=== PATIENT | female | born 1965 | race Caucasian/White ===

== ENCOUNTER 2017-01-05 15:04 | Emergency (ER) | payer BC, OTHER ==
[2017-01-05 15:13] VITALS: BP 123/68
[2017-01-05] MEDS ORDERED: Sodium Chloride 0.9% 10 ML Syringe FLUSH PRN (15:13)
[2017-01-05 16:09] LABS: ACETAMINOPHEN 0 ug/mL (10-30)
--- NOTE | 2017-01-05 16:09 | EDM.PDOC ---
ED HPI GENERAL MEDICAL PROBLEM - General Chief Complaint: Behavioral/Psych Stated Complaint: [facility] Time Seen by Provider: 01/05/17 15:13 Source of Information: Reports: Patient, EMS, Family History Limitations: Reports: No Limitations - History of Present Illness INITIAL COMMENTS - FREE TEXT/NARRATIVE: The patient presents by ambulance after being found by her adult daughter. The patient got into an argument with someone this morning. She was anxious and she took valium to help. She took 40mgs total. She says that had nothing to do with her falling. She uses a cane because of chronic pain from surgeries to her right knee. She was walking by the water dish for her dog and the cane slipped in the water dish and she fell. She did not hit her head and she did not hurt her neck. She denies, headache, chest pain, shortness of breath, abdominal pain, nausea, vomiting, hip or wrist pain. She does have right knee pain. She has no numbness or weakness. Onset: Gradual Duration: Minutes: Location: Reports: Upper Extremity, Right (Knee) Quality: Reports: Sharp Severity: Moderate Improves with: Reports: Immobilization Worsens with: Reports: Movement Associated Symptoms: Reports: No Other Symptoms Right Knee Pain Score (Numeric/FACES): 7 - Related Data Allergies Allergy/AdvReac Type Severity Reaction Status Date / Time ibuprofen Allergy Cannot Verified 01/05/17 15:34 Remember Home Meds: Home Meds Cyanocobalamin (Vitamin B-12) [Vitamin B-12] 1,000 mcg PO DAILY 03/06/16 [ History] DULoxetine HCl [Cymbalta] 60 mg PO BID 03/06/16 [History] Dextroamphetamine/Amphetamine [Adderall] 60 mg PO DAILY 03/06/16 [History] Diazepam [Diazepam] 10 mg PO TID PRN 03/06/16 [History] Estrogen,Con/M-Progest Acet [Prempro 0.3 MG-1.5 MG] 1 tab PO DAILY 03/06/16 [ History] Gabapentin [Neurontin] 200 mg PO TID 03/06/16 [History] Iron 18 mg PO DAILY 03/06/16 [History] Levothyroxine [Synthroid] 100 mcg PO DAILY 03/06/16 [History] OXcarbazepine [Trileptal] 900 mg PO BEDTIME 03/06/16 [History] Oxybutynin Chloride [Ditropan Xl] 10 mg PO BID 03/06/16 [History] Zolpidem Tartrate [Ambien] 12.5 mg PO BEDTIME PRN 03/06/16 [History] oxyCODONE HCl/Acetaminophen [Percocet 10-325 mg Tablet] 1 each PO 6XDAY PRN [History] traZODone HCl [Trazodone HCl] 2 - 3 tab PO BEDTIME PRN 03/06/16 [History] Caffeine [Stay Awake] 200 mg PO ASDIRECTED 01/05/17 [History] Cephalexin 250 mg PO Q48H 01/05/17 [History] Cholecalciferol (Vitamin D3) [Vitamin D3] 1 tab PO DAILY 01/05/17 [History] Clarithromycin 500 mg PO BID 01/05/17 [History] Mirabegron [Myrbetriq] 50 mg PO BEDTIME 01/05/17 [History] Morphine. 1 tab PO ASDIRECTED 01/05/17 [History] Rifampin 300 mg PO BID 01/05/17 [History] Sulfamethoxazole/Trimethoprim [Bactrim Ds Tablet] 1 tab PO BID 01/05/17 [History ] Past Medical History HEENT History: Reports: Other (See Below) Other HEENT History: wears dentures Genitourinary History: Reports: UTI, Recurrent Psychiatric History: Reports: Anxiety, Bipolar, Depression Endocrine/Metabolic History: Reports: Hypothyroidism Hematologic History: Reports: Anemia, B12 Deficiency Dermatologic History: Reports: Other (See Below) Other Dermatologic History: excess skin removal surgery - Past Surgical History GI Surgical History: Reports: Bariatric Procedure Musculoskeletal Surgical History: Reports: Knee Replacement Social & Family History - Family History Family Medical History: Noncontributory - Tobacco Use Smoking Status *Q: Never Smoker Second Hand Smoke Exposure: No - Caffeine Use Caffeine Use: Reports: Coffee, Soda - Recreational Drug Use Recreational Drug Use: No ED ROS GENERAL - Review of Systems Review Of Systems: See Below Constitutional: Reports: No Symptoms HEENT: Reports: No Symptoms Respiratory: Reports: No Symptoms Cardiovascular: Reports: No Symptoms Endocrine: Reports: No Symptoms GI/Abdominal: Reports: No Symptoms : Reports: No Symptoms Musculoskeletal: Reports: Other (Right knee pain) - Physical Exam Exam: See Below Exam Limited By: No Limitations General Appearance: Alert, No Apparent Distress Ears: Normal External Exam Nose: Normal Inspection Head Exam: Atraumatic, Normocephalic Neck: Normal Inspection Respiratory/Chest: No Respiratory Distress, Lungs Clear, Normal Breath Sounds Cardiovascular: Regular Rate, Rhythm, No Edema, No Murmur GI/Abdominal: Soft, Non-Tender, No Organomegaly, No Mass Neuro Exam (Abbreviated): Alert, Oriented, No Motor/Sensory Deficits Back Exam: Normal Inspection Extremities: Other (Right knee has old scars with edema and pain upon palpation. ) Course - Vital Signs Last Recorded V/S: Last Vital Signs Temp 97.8 F 01/05/17 15:09 Pulse 75 01/05/17 15:09 Resp 24 H 01/05/17 15:09 BP 123/68 01/05/17 15:09 Pulse Ox 100 01/05/17 15:09 - Orders/Labs/Meds Orders: Active Orders 24 hr Category Date Time Status Cardiac Monitoring [RC] . DIRECTED Care 01/05/17 15:13 Active EKG Documentation Completion [RC] STAT Care 01/05/17 15:13 Active Peripheral IV Care [RC] . DIRECTED Care 01/05/17 15:14 Active Knee Min 4V Rt [CR] Stat Exams 01/05/17 16:03 Taken Sodium Chloride 0.9% [Saline Flush] Med 01/05/17 15:13 Active 10 ml FLUSH ASDIRECTED PRN Peripheral IV Insertion Adult [OM.PC] Stat Oth 01/05/17 15:13 Ordered Medication Orders Sodium Chloride (Saline Flush) 10 ml FLUSH ASDIRECTED PRN PRN Reason: Keep Vein Open Last Admin: 01/05/17 15:35 Dose: 10 ml Labs: Laboratory Tests 01/05/17 01/05/17 01/05/17 Range/Units 15:30 15:30 15:30 WBC 7.26 (3.98-10.04) K/mm3 RBC 4.16 (3.98-5.22) M/mm3 Hgb 12.9 (11.2-15.7) gm/L Hct 39.0 (34.1-44.9) % MCV 93.8 (79.4-94.8) fl MCH 31.0 (25.6-32.2) pg MCHC 33.1 (32.2-35.5) g/dl RDW Std Deviation 42.4 (36.4-46.3) fL Plt Count 248 (182-369) K/mm3 MPV 10.2 (9.4-12.3) fl Neut % (Auto) 64.2 (34.0-71.1) % Lymph % (Auto) 25.6 (19.3-51.7) % [place] % (Auto) 6.7 (4.7-12.5) % Eos % (Auto) 2.8 (0.7-5.8) Baso % (Auto) 0.6 (0.1-1.2) % Neut # (Auto) 4.66 (1.56-6.13) K/mm3 Lymph # (Auto) 1.86 (1.18-3.74) K/mm3 [place] # (Auto) 0.49 H (0.24-0.36) K/mm3 Eos # (Auto) 0.20 (0.04-0.36) K/mm3 Baso # (Auto) 0.04 (0.01-0.08) K/mm3 Sodium 142 (136-145) mEq/L Potassium 4.2 (3.5-5.1) mEq/L Chloride 105 (98-107) mEq/L Carbon Dioxide 29 (21-32) mEq/L Anion Gap 12.2 (5-15) BUN 10 (7-18) mg/dL Creatinine 0.8 (0.55-1.02) mg/dL Est Cr Clr Drug Dosing 87.92 mL/min Estimated GFR (MDRD) > 60 (>60) mL/min BUN/Creatinine Ratio 12.5 L (14-18) Glucose 87 (74-106) mg/dL Calcium 9.1 (8.5-10.1) mg/dL Total Bilirubin 0.4 (0.2-1.0) mg/dL AST 12 L (15-37) U/L ALT 14 (14-59) U/L Alkaline Phosphatase 70 (46-116) U/L Troponin I < 0.017 (0.00-0.056) ng/mL Total Protein 6.4 (6.4-8.2) g/dl Albumin 3.1 L (3.4-5.0) g/dl Globulin 3.3 gm/dL Albumin/Globulin Ratio 0.9 L (1-2) Salicylates 1.5 L (2.8-20) mg/dL Acetaminophen 0 L (10-30) ug/mL Ethyl Alcohol 0.00 (0.00) gm% Meds: Medications Generic Name Dose Route Start Last Admin Trade Name Freq PRN Reason Stop Dose Admin Sodium Chloride 10 ml 01/05/17 15:13 01/05/17 15:35 Saline Flush FLUSH 10 ml ASDIRECTED PRN Administration Keep Vein Open - Re-Assessments/Exams Free Text/Narrative Re-Assessment/Exam: 01/05/17 16:12 I ordered an IV saline lock, EKG, labs and UDS. Her EKG shwos a NSR with no acute changes. 01/05/17 16:38 Her EKG shows a NSR with no acute changes. Her CBC and CMP look good. Her troponin was negative. Her ETOH was negative. Her salicylate and acetaminophen were negative. She could not give us a urine sample at this time. Her son was here and he was not suspecting she tried to hurt herself. I feels she is safe to go home. Her knee x-ray shows no fracture. She does have a prosthesis. Departure - Departure Time of Disposition: 16:45 Disposition: Home, Self-Care 01 Condition: Good Clinical Impression: Fall Qualifiers: Encounter type: initial encounter Qualified Code(s): W19.XXXA - Unspecified fall, initial encounter Contusion of right knee Qualifiers: Encounter type: initial encounter Qualified Code(s): S80.01XA - Contusion of right knee, initial encounter Accidental overdose Qualifiers: Encounter type: initial encounter Qualified Code(s): T50.901A - Poisoning by unspecified drugs, medicaments and biological substances, accidental ( unintentional), initial encounter - Discharge Information Referrals: Suha Fernandez MD [Primary Care Provider] - Forms: ED Department Discharge Additional Instructions: Take your medication as prescribed. Ice your knee for 15 minutes 3 times per day for 2 days. Please return if you are worse. - My Orders Last 24 Hours: My Active Orders 01/05/17 15:13 Cardiac Monitoring [RC] . DIRECTED EKG Documentation Completion [RC] STAT Sodium Chloride 0.9% [Saline Flush] 10 ml FLUSH ASDIRECTED PRN Peripheral IV Insertion Adult [OM.PC] Stat 01/05/17 15:14 Peripheral IV Care [RC] . DIRECTED 01/05/17 16:03 Knee Min 4V Rt [CR] Stat - Assessment/Plan Last 24 Hours: My Active Orders 01/05/17 15:13 Cardiac Monitoring [RC] . DIRECTED EKG Documentation Completion [RC] STAT Sodium Chloride 0.9% [Saline Flush] 10 ml FLUSH ASDIRECTED PRN Peripheral IV Insertion Adult [OM.PC] Stat 01/05/17 15:14 Peripheral IV Care [RC] . DIRECTED 01/05/17 16:03 Knee Min 4V Rt [CR] Stat
--- NOTE | 2017-01-05 18:20 | CR ---
Right knee: Four views of the right knee were obtained. Comparison: No previous study. Knee prosthesis is seen. Components are aligned. Underlying bony structures are intact. Impression: 1. Right knee prosthesis. Right knee exam is otherwise unremarkable. Diagnostic code #2
== END 2017-01-05 17:10 | disposition home or self-care (01) ==
LOC: JD.ED 15:04
DX: T42.4X1A Poisoning by benzodiazepines, accidental (unintentional), initial encounter (principal); S80.01XA Contusion of right knee, initial encounter; E03.9 Hypothyroidism, unspecified; W01.0XXA Fall on same level from slipping, tripping and stumbling without subsequent striking against object, initial encounter; Z79.899 Other long term (current) drug therapy; Z88.6 Allergy status to analgesic agent; Z96.659 Presence of unspecified artificial knee joint
CPT/HCPCS: 36415; 73564; 80053; 84484; 85025; 93005; 99285; G0480; J7050; 93010; 99284

== ENCOUNTER 2017-04-21 13:01 | Emergency (ER) | payer BC, OTHER ==
[2017-04-21 13:17] VITALS: BP 106/84
[2017-04-21] MEDS ORDERED: Sodium Chloride 0.9% 1,000 ML IV ONE (13:48)
--- NOTE | 2017-04-21 13:48 | EDM.PDOC ---
ED HPI GENERAL MEDICAL PROBLEM - General Chief Complaint: Behavioral/Psych Stated Complaint: [facility] Time Seen by Provider: 04/21/17 13:33 Source of Information: Reports: Patient History Limitations: Reports: No Limitations - History of Present Illness INITIAL COMMENTS - FREE TEXT/NARRATIVE: 51-year-old female presents via [facility] for unresponsiveness. Reportedly her found out she was selling her narcotics for marijuana today. He went to the police. While he was at the police their 19-year-old daughter called 911 stating that her mother had taken an overdose of pills. This was not witnessed by the daughter. Unknown how many pills she took or what medication she took. Upon arrival to the ER she is responding to painful stimuli. Does not confirm or deny OD. Noted that she is on multiple controlled substances for pain and depression/ anxiety. - Related Data Allergies Allergy/AdvReac Type Severity Reaction Status Date / Time ibuprofen Allergy Cannot Verified 04/22/17 17:47 Remember Home Meds: Home Meds Oxybutynin [Oxybutynin ER] 10 mg PO BID 04/21/17 [History] oxyCODONE HCl/Acetaminophen [Percocet 10-325 mg Tablet] 1 tab PO Q4H PRN MDD 6 tablets/24hours 04/21/17 [History] Amphetamine/Dextroamphetamine [Adderall XR] 2 cap PO DAILY 04/22/17 [History] Cholecalciferol (Vitamin D3) [Vitamin D3] 1,000 units PO DAILY 04/22/17 [History ] Clarithromycin 500 mg PO BID 04/22/17 [History] Cyanocobalamin (Vitamin B12) [Vitamin B12] 1,000 mcg PO DAILY 04/22/17 [History] DULoxetine [Cymbalta] 60 mg PO BID 04/22/17 [History] DULoxetine [Cymbalta] 60 mg PO DAILY 04/22/17 [History] Diazepam [Valium] 10 mg PO TID PRN 04/22/17 [History] Ferrous Gluconate 27 gm PO DAILY 04/22/17 [History] Gabapentin [Neurontin] 300 mg PO TID 04/22/17 [History] Levothyroxine [Sythroid] 100 mcg PO DAILY 04/22/17 [History] Mirabegron [Myrbetriq] 50 mg PO BEDTIME 04/22/17 [History] Rifampin 300 mg PO BID 04/22/17 [History] Vitamin E 400 unit PO DAILY 04/22/17 [History] Zolpidem [Ambien CR] 12.5 mg PO BEDTIME 04/22/17 [History] diphenhydrAMINE [Benadryl] 50 mg PO BEDTIME PRN 04/22/17 [History] traZODone 200 - 300 mg PO BEDTIME 04/22/17 [History] Past Medical History HEENT History: Reports: Other (See Below) Other HEENT History: wears dentures Genitourinary History: Reports: UTI, Recurrent Psychiatric History: Reports: Anxiety, Bipolar, Depression Endocrine/Metabolic History: Reports: Hypothyroidism Hematologic History: Reports: Anemia, B12 Deficiency Dermatologic History: Reports: Other (See Below) Other Dermatologic History: excess skin removal surgery - Past Surgical History GI Surgical History: Reports: Bariatric Procedure Musculoskeletal Surgical History: Reports: Knee Replacement Social & Family History - Family History Family Medical History: Noncontributory - Tobacco Use Smoking Status *Q: Never Smoker Second Hand Smoke Exposure: No - Caffeine Use Caffeine Use: Reports: Coffee, Soda - Recreational Drug Use Recreational Drug Use: No ED ROS GENERAL - Review of Systems Review Of Systems: Unable To Obtain - Physical Exam Exam: See Below Exam Limited By: No Limitations General Appearance: WD/WN, No Apparent Distress, Lethargic Eye Exam: Bilateral Eye: Normal Inspection Nose: Normal Inspection Throat/Mouth: Normal Inspection Respiratory/Chest: No Respiratory Distress, Lungs Clear, Normal Breath Sounds Cardiovascular: Normal Peripheral Pulses, Regular Rate, Rhythm, No Murmur GI/Abdominal: Soft, Non-Tender Neuro Exam (Abbreviated): Slow to Respond Skin Exam: Warm, Dry, Normal Color EKG INTERPRETATION EKG Date: 04/21/17 Time: 14:40 Rhythm: NSR Rate (Beats/Min): 71 [place]: Normal P-Wave: Present QRS: Normal ST-T: Normal QT: Normal EKG Interpretation Comments: NSR at 71 bpm. Borderline criteria for LVH. QT mildly prolonged. Reviewed by myself and Dr. Davison. Course - Vital Signs Last Recorded V/S: Last Vital Signs Temp 37.0 C 04/21/17 13:10 Pulse 73 04/21/17 13:10 Resp 13 04/21/17 13:10 BP 106/84 04/21/17 13:10 Pulse Ox 92 L 04/21/17 13:10 - Orders/Labs/Meds Labs: Laboratory Tests 04/21/17 04/21/17 04/21/17 Range/Units 13:27 13:27 13:27 WBC 5.19 (3.98-10.04) K/mm3 RBC 5.04 (3.98-5.22) M/mm3 Hgb 15.0 (11.2-15.7) gm/L Hct 46.4 H (34.1-44.9) % MCV 92.1 (79.4-94.8) fl MCH 29.8 (25.6-32.2) pg MCHC 32.3 (32.2-35.5) g/dl RDW Std Deviation 50.6 H (36.4-46.3) fL Plt Count 199 (182-369) K/mm3 MPV 10.6 (9.4-12.3) fl Neutrophils % (Manual) 44 (40-60) % Band Neutrophils % 4 (0-10) % Lymphocytes % (Manual) 47 H (20-40) % Atypical Lymphs % 0 % Monocytes % (Manual) 4 (2-10) % Eosinophils % (Manual) 1 (0.7-5.8) % Basophils % (Manual) 0 L (0.1-1.2) Platelet Estimate Adequate RBC Morph Comment Normal Sodium 139 (136-145) mEq/L Potassium 4.1 (3.5-5.1) mEq/L Chloride 102 (98-107) mEq/L Carbon Dioxide 27 (21-32) mEq/L Anion Gap 14.1 (5-15) BUN 17 (7-18) mg/dL Creatinine 1.1 H (0.55-1.02) mg/dL Est Cr Clr Drug Dosing TNP Estimated GFR (MDRD) 53 (>60) mL/min BUN/Creatinine Ratio 15.5 (14-18) Glucose 87 (74-106) mg/dL Calcium 9.3 (8.5-10.1) mg/dL Total Bilirubin 0.2 (0.2-1.0) mg/dL AST 18 (15-37) U/L ALT 23 (14-59) U/L Alkaline Phosphatase 79 (46-116) U/L Total Protein 7.2 (6.4-8.2) g/dl Albumin 3.5 (3.4-5.0) g/dl Globulin 3.7 gm/dL Albumin/Globulin Ratio 1.0 (1-2) TSH 3rd Generation 8.072 H (0.358-3.74) uIU/mL Urine Color (Yellow) Urine Appearance (Clear) Urine pH (5.0-8.0) Ur Specific Isabel (1.005-1.030) Urine Protein (Negative) Urine Glucose (UA) (Negative) Urine Ketones (Negative) Urine Occult Blood (Negative) Urine Nitrite (Negative) Urine Bilirubin (Negative) Urine Urobilinogen (0.2-1.0) Ur Leukocyte Esterase (Negative) Urine RBC (0-5) /hpf Urine WBC (0-5) /hpf Ur Epithelial Cells (0-5) /hpf Urine Bacteria (FEW) /hpf Urine Mucus (FEW) /hpf Salicylates 2.6 L (2.8-20) mg/dL Urine Opiates Screen (NEGATIVE) Ur Buprenorphine Scrn (NEGATIVE) Ur Oxycodone Screen (NEGATIVE) Urine Methadone Screen (NEGATIVE) Ur Propoxyphene Screen (NEGATIVE) Acetaminophen 0 L (10-30) ug/mL Ur Barbiturates Screen (NEGATIVE) Ur Tricyclics Screen (NEGATIVE) Ur Phencyclidine Scrn (NEGATIVE) Ur Amphetamine Screen (NEGATIVE) U Methamphetamines Scrn (NEGATIVE) U Benzodiazepines Scrn (NEGATIVE) U Cocaine Metab Screen (NEGATIVE) U Marijuana (THC) Screen (NEGATIVE) Ethyl Alcohol 0.00 (0.00) gm% 04/21/17 04/21/17 Range/Units 13:49 13:49 WBC (3.98-10.04) K/mm3 RBC (3.98-5.22) M/mm3 Hgb (11.2-15.7) gm/L Hct (34.1-44.9) % MCV (79.4-94.8) fl MCH (25.6-32.2) pg MCHC (32.2-35.5) g/dl RDW Std Deviation (36.4-46.3) fL Plt Count (182-369) K/mm3 MPV (9.4-12.3) fl Neutrophils % (Manual) (40-60) % Band Neutrophils % (0-10) % Lymphocytes % (Manual) (20-40) % Atypical Lymphs % % Monocytes % (Manual) (2-10) % Eosinophils % (Manual) (0.7-5.8) % Basophils % (Manual) (0.1-1.2) Platelet Estimate RBC Morph Comment Sodium (136-145) mEq/L Potassium (3.5-5.1) mEq/L Chloride (98-107) mEq/L Carbon Dioxide (21-32) mEq/L Anion Gap (5-15) BUN (7-18) mg/dL Creatinine (0.55-1.02) mg/dL Est Cr Clr Drug Dosing Estimated GFR (MDRD) (>60) mL/min BUN/Creatinine Ratio (14-18) Glucose (74-106) mg/dL Calcium (8.5-10.1) mg/dL Total Bilirubin (0.2-1.0) mg/dL AST (15-37) U/L ALT (14-59) U/L Alkaline Phosphatase (46-116) U/L Total Protein (6.4-8.2) g/dl Albumin (3.4-5.0) g/dl Globulin gm/dL Albumin/Globulin Ratio (1-2) TSH 3rd Generation (0.358-3.74) uIU/mL Urine Color Yellow (Yellow) Urine Appearance Slt cloudy H (Clear) Urine pH 6.5 (5.0-8.0) Ur Specific [place] 1.025 (1.005-1.030) Urine Protein Negative (Negative) Urine Glucose (UA) Negative (Negative) Urine Ketones Negative (Negative) Urine Occult Blood Negative (Negative) Urine Nitrite Negative (Negative) Urine Bilirubin Negative (Negative) Urine Urobilinogen 1.0 (0.2-1.0) Ur Leukocyte Esterase Negative (Negative) Urine RBC 0-5 (0-5) /hpf Urine WBC 0-5 (0-5) /hpf Ur Epithelial Cells 0-5 (0-5) /hpf Urine Bacteria Moderate H (FEW) /hpf Urine Mucus Few (FEW) /hpf Salicylates (2.8-20) mg/dL Urine Opiates Screen Presumptive positive H (NEGATIVE) Ur Buprenorphine Scrn Negative (NEGATIVE) Ur Oxycodone Screen Presumptive positive H (NEGATIVE) Urine Methadone Screen Negative (NEGATIVE) Ur Propoxyphene Screen Negative (NEGATIVE) Acetaminophen (10-30) ug/mL Ur Barbiturates Screen Negative (NEGATIVE) Ur Tricyclics Screen Negative (NEGATIVE) Ur Phencyclidine Scrn Negative (NEGATIVE) Ur Amphetamine Screen Presumptive positive H (NEGATIVE) U Methamphetamines Scrn Negative (NEGATIVE) U Benzodiazepines Scrn Presumptive positive H (NEGATIVE) U Cocaine Metab Screen Negative (NEGATIVE) U Marijuana (THC) Screen Negative (NEGATIVE) Ethyl Alcohol (0.00) gm% Meds: Medications Discontinued Medications Generic Name Dose Route Start Last Admin Trade Name Freq PRN Reason Stop Dose Admin Sodium Chloride 1,000 mls @ 999 mls/hr 04/21/17 13:48 04/21/17 13:58 Normal Saline IV 04/21/17 14:48 999 mls/hr ONETIME ONE Administration Sodium Chloride 10 ml 04/21/17 13:50 04/21/17 13:59 Saline Flush FLUSH 10 ml ASDIRECTED PRN Administration Keep Vein Open - Radiology Interpretation Free Text/Narrative:: chest xray shows no acute intrathoracic process. - Re-Assessments/Exams Free Text/Narrative Re-Assessment/Exam: 04/21/17 18:32 The patient is now alert and awake. She is wanting to go. Have attempted to talk to her but she is rather upset about her and her splitting up. She would like to leave. Patient reports suicidal thoughts but states that she does not have a plan. No homicidal thoughts. She denies any medical concerns. States she is seeing a psychiatrist. Complains of chronic pain. Reports she uses marijuana for chronic pain. Patient has no plan where to go to stay tonight. She refusing to talk to social a work. She refuses to go to any type of senior care. She tells me that she thinks about suicide but does not have any plan. She is adamant that she did not attempt overdose when asked, she states this on multiple occasions. She is on a significant amount of controlled substances which can cause lethargy. Case discussed with Dr. Davison. Given she denies overdosing and is not actively suicidal at this time, cannot commit. Will send home with family. Will discharge her at this time. Discharge instructions as documented. Departure - Departure Time of Disposition: 18:32 Disposition: Home, Self-Care 01 Condition: Fair Clinical Impression: Situational depression - Discharge Information Referrals: PCP,None [Primary Care Provider] - Suha Fernandez MD [Physician] - Adrianna Mcneill NP [Ordering Only Provider] - Forms: ED Department Discharge Additional Instructions: Recommend establishing with a counselor. May call [facility] that [phone] or the emergency crisis line at [phone] establish with a counselor there. Follow-up with your primary care provider this week for recheck. Please return to the ER for symptoms change or worsen.
[2017-04-21] MEDS ORDERED: Sodium Chloride 0.9% 10 ML Syringe FLUSH PRN (13:50)
[2017-04-21 14:26] LABS: ACETAMINOPHEN 0 ug/mL (10-30)
--- NOTE | 2017-04-21 14:44 | CR ---
Chest: Portable view of the chest was obtained. Comparison: Prior chest x-ray of 03/06/16. Heart size and mediastinum are normal. Lungs are clear. Bony structures show mild scoliosis within the spine. Slight degenerative spurring is noted within the spine. Impression: 1. Nothing acute is identified on portable chest x-ray. Diagnostic code #2
== END 2017-04-21 18:52 | disposition home or self-care (01) ==
LOC: JD.ED 13:01
DX: F43.21 Adjustment disorder with depressed mood (principal); Z79.899 Other long term (current) drug therapy; Z88.6 Allergy status to analgesic agent
CPT/HCPCS: 36415; 71045; 80053; 80306; 81001; 84443; 85025; 93005; 96360; 96361; 99285; G0480; J7040; J7050; P9612

== ENCOUNTER 2017-04-22 17:36 | Emergency (ER) | payer BC, OTHER ==
[2017-04-22] MEDS ORDERED: Haloperidol Lactate 5 MG/ML SDV IM ONE (17:51)
[2017-04-22] MEDS ORDERED: LORazepam 2 MG/ML SDV IM ONE (17:51)
--- NOTE | 2017-04-22 22:54 | EDM.PDOCBH ---
ED HPI GENERAL MEDICAL PROBLEM - General Chief Complaint: Behavioral/Psych Stated Complaint: PSYCH EVAL Time Seen by Provider: 04/22/17 18:50 Source of Information: Reports: Patient, Family (son) History Limitations: Reports: No Limitations - History of Present Illness INITIAL COMMENTS - FREE TEXT/NARRATIVE: 51 year old female is brought in by her son for a psychiatric evaluation. She was seen by myself and in the ER yesterday for a possible overdose. She was lethargic upon arrival but after sleeping in the ER she was alert and awake. She denies overdosing. She stated she was tired and upset by her current home situation. She was discharge home. Patient presents with her today as he is concerned about comments she has been making today. Son states she has been saying things like :I just want to ." "You won't miss me". " I just want to disappear". The patient was very upset upon arrival in the ER. She was given 2mgIM ativan and 5mg IM haldol for her anxiety and restlessness. This significantly calmed her. Patient admits to saying these things to her son earlier. Denies any homicidal ideation. Denies any medical concerns. No cough, fevers, nausea or vomiting. Patient is currently in a pain contract. Review of her record on [employer] Aware shows Rx for gabapentin, ambian, percocet, morphine, valvium and aderall within the last 1-2 months. - Related Data Allergies Allergy/AdvReac Type Severity Reaction Status Date / Time ibuprofen Allergy Cannot Verified 04/22/17 17:47 Remember Home Meds: Home Meds Oxybutynin [Oxybutynin ER] 10 mg PO BID 04/21/17 [History] oxyCODONE HCl/Acetaminophen [Percocet 10-325 mg Tablet] 1 tab PO Q4H PRN MDD 6 tablets/24hours 04/21/17 [History] Amphetamine/Dextroamphetamine [Adderall XR] 2 cap PO DAILY 04/22/17 [History] Cholecalciferol (Vitamin D3) [Vitamin D3] 1,000 units PO DAILY 04/22/17 [History ] Clarithromycin 500 mg PO BID 04/22/17 [History] Cyanocobalamin (Vitamin B12) [Vitamin B12] 1,000 mcg PO DAILY 04/22/17 [History] DULoxetine [Cymbalta] 60 mg PO BID 04/22/17 [History] DULoxetine [Cymbalta] 60 mg PO DAILY 04/22/17 [History] Diazepam [Valium] 10 mg PO TID PRN 04/22/17 [History] Ferrous Gluconate 27 gm PO DAILY 04/22/17 [History] Gabapentin [Neurontin] 300 mg PO TID 04/22/17 [History] Levothyroxine [Sythroid] 100 mcg PO DAILY 04/22/17 [History] Mirabegron [Myrbetriq] 50 mg PO BEDTIME 04/22/17 [History] Rifampin 300 mg PO BID 04/22/17 [History] Vitamin E 400 unit PO DAILY 04/22/17 [History] Zolpidem [Ambien CR] 12.5 mg PO BEDTIME 04/22/17 [History] diphenhydrAMINE [Benadryl] 50 mg PO BEDTIME PRN 04/22/17 [History] traZODone 200 - 300 mg PO BEDTIME 04/22/17 [History] Past Medical History HEENT History: Reports: Other (See Below) Other HEENT History: wears dentures Genitourinary History: Reports: UTI, Recurrent Psychiatric History: Reports: Anxiety, Bipolar, Depression Endocrine/Metabolic History: Reports: Hypothyroidism Hematologic History: Reports: Anemia, B12 Deficiency Dermatologic History: Reports: Other (See Below) Other Dermatologic History: excess skin removal surgery - Past Surgical History GI Surgical History: Reports: Bariatric Procedure Musculoskeletal Surgical History: Reports: Knee Replacement Social & Family History - Family History Family Medical History: Noncontributory - Tobacco Use Smoking Status *Q: Never Smoker Second Hand Smoke Exposure: No - Caffeine Use Caffeine Use: Reports: Coffee, Soda - Recreational Drug Use Recreational Drug Use: No ED ROS GENERAL - Review of Systems Review Of Systems: See Below Constitutional: Denies: Fever Respiratory: Denies: Cough GI/Abdominal: Denies: Nausea, Vomiting Psychiatric: Reports: Depression, Suicidal Ideation. Denies: Homicidal Ideation ED EXAM, BEHAVIORAL HEALTH - Physical Exam Exam: See Below Exam Limited By: No Limitations General Appearance: Alert, Anxious, Moderate Distress, Thin Eye Exam: Bilateral Eye: Normal Inspection Throat/Mouth: Normal Inspection Respiratory/Chest: No Respiratory Distress, Lungs Clear, Normal Breath Sounds Cardiovascular: Normal Peripheral Pulses, Regular Rate, Rhythm, No Murmur 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: Alert Psychiatric: Alert, Depressed Mood, Tearful, Poor Eye Contact, Uncooperative, Suicidal Thoughts, Other (elusive). No: Homicidal Thoughts, Suicidal Plan Skin Exam: Warm, Dry, Normal color COURSE, BEHAVIORAL HEALTH COMP - Course Vital Signs: Last Vital Signs Temp 36.1 C 04/22/17 17:47 Pulse 91 04/22/17 17:47 Resp BP 140/106 H 04/22/17 17:47 Pulse Ox 100 04/22/17 17:47 Orders, Labs, Meds: Laboratory Tests 04/22/17 04/22/17 04/22/17 Range/Units 18:23 18:23 18:23 WBC 6.20 (3.98-10.04) K/mm3 RBC 5.09 (3.98-5.22) M/mm3 Hgb 15.1 (11.2-15.7) gm/L Hct 45.4 H (34.1-44.9) % MCV 89.2 (79.4-94.8) fl MCH 29.7 (25.6-32.2) pg MCHC 33.3 (32.2-35.5) g/dl RDW Std Deviation 47.1 H (36.4-46.3) fL Plt Count 236 (182-369) K/mm3 MPV 10.3 (9.4-12.3) fl Neut % (Auto) 58.0 (34.0-71.1) % Lymph % (Auto) 31.9 (19.3-51.7) % [place] % (Auto) 8.4 (4.7-12.5) % Eos % (Auto) 1.0 (0.7-5.8) Baso % (Auto) 0.5 (0.1-1.2) % Neut # (Auto) 3.60 (1.56-6.13) K/mm3 Lymph # (Auto) 1.98 (1.18-3.74) K/mm3 [place] # (Auto) 0.52 H (0.24-0.36) K/mm3 Eos # (Auto) 0.06 (0.04-0.36) K/mm3 Baso # (Auto) 0.03 (0.01-0.08) K/mm3 Manual Slide Review Normal smear Sodium 138 (136-145) mEq/L Potassium 3.7 (3.5-5.1) mEq/L Chloride 102 (98-107) mEq/L Carbon Dioxide 25 (21-32) mEq/L Anion Gap 14.7 (5-15) BUN 19 H (7-18) mg/dL Creatinine 1.1 H (0.55-1.02) mg/dL Est Cr Clr Drug Dosing 63.94 mL/min Estimated GFR (MDRD) 53 (>60) mL/min BUN/Creatinine Ratio 17.3 (14-18) Glucose 98 (74-106) mg/dL Calcium 9.7 (8.5-10.1) mg/dL Total Bilirubin 0.3 (0.2-1.0) mg/dL AST 22 (15-37) U/L ALT 24 (14-59) U/L Alkaline Phosphatase 83 (46-116) U/L C-Reactive Protein (<1.0) mg/dL Total Protein 7.8 (6.4-8.2) g/dl Albumin 3.9 (3.4-5.0) g/dl Globulin 3.9 gm/dL Albumin/Globulin Ratio 1.0 (1-2) Free T4 (0.76-1.46) ng/dL TSH 3rd Generation 41.781 H (0.358-3.74) uIU/mL Urine Color (Yellow) Urine Appearance (Clear) Urine pH (5.0-8.0) Ur Specific [place] (1.005-1.030) Urine Protein (Negative) Urine Glucose (UA) (Negative) Urine Ketones (Negative) Urine Occult Blood (Negative) Urine Nitrite (Negative) Urine Bilirubin (Negative) Urine Urobilinogen (0.2-1.0) Ur Leukocyte Esterase (Negative) Urine RBC (0-5) /hpf Urine WBC (0-5) /hpf Ur Epithelial Cells (0-5) /hpf Urine Bacteria (FEW) /hpf Urine Mucus (FEW) /hpf Salicylates 2.6 L (2.8-20) mg/dL Urine Opiates Screen (NEGATIVE) Ur Buprenorphine Scrn (NEGATIVE) Ur Oxycodone Screen (NEGATIVE) Urine Methadone Screen (NEGATIVE) Ur Propoxyphene Screen (NEGATIVE) Acetaminophen 0 L (10-30) ug/mL Ur Barbiturates Screen (NEGATIVE) Ur Tricyclics Screen (NEGATIVE) Ur Phencyclidine Scrn (NEGATIVE) Ur Amphetamine Screen (NEGATIVE) U Methamphetamines Scrn (NEGATIVE) U Benzodiazepines Scrn (NEGATIVE) U Cocaine Metab Screen (NEGATIVE) U Marijuana (THC) Screen (NEGATIVE) Ethyl Alcohol 0.00 (0.00) gm% 04/22/17 04/22/17 04/22/17 Range/Units 18:23 18:23 19:46 WBC (3.98-10.04) K/mm3 RBC (3.98-5.22) M/mm3 Hgb (11.2-15.7) gm/L Hct (34.1-44.9) % MCV (79.4-94.8) fl MCH (25.6-32.2) pg MCHC (32.2-35.5) g/dl RDW Std Deviation (36.4-46.3) fL Plt Count (182-369) K/mm3 MPV (9.4-12.3) fl Neut % (Auto) (34.0-71.1) % Lymph % (Auto) (19.3-51.7) % [place] % (Auto) (4.7-12.5) % Eos % (Auto) (0.7-5.8) Baso % (Auto) (0.1-1.2) % Neut # (Auto) (1.56-6.13) K/mm3 Lymph # (Auto) (1.18-3.74) K/mm3 [place] # (Auto) (0.24-0.36) K/mm3 Eos # (Auto) (0.04-0.36) K/mm3 Baso # (Auto) (0.01-0.08) K/mm3 Manual Slide Review Sodium (136-145) mEq/L Potassium (3.5-5.1) mEq/L Chloride (98-107) mEq/L Carbon Dioxide (21-32) mEq/L Anion Gap (5-15) BUN (7-18) mg/dL Creatinine (0.55-1.02) mg/dL Est Cr Clr Drug Dosing mL/min Estimated GFR (MDRD) (>60) mL/min BUN/Creatinine Ratio (14-18) Glucose (74-106) mg/dL Calcium (8.5-10.1) mg/dL Total Bilirubin (0.2-1.0) mg/dL AST (15-37) U/L ALT (14-59) U/L Alkaline Phosphatase (46-116) U/L C-Reactive Protein 1.2 H* (<1.0) mg/dL Total Protein (6.4-8.2) g/dl Albumin (3.4-5.0) g/dl Globulin gm/dL Albumin/Globulin Ratio (1-2) Free T4 0.68 L (0.76-1.46) ng/dL TSH 3rd Generation (0.358-3.74) uIU/mL Urine Color Yellow (Yellow) Urine Appearance Clear (Clear) Urine pH 6.0 (5.0-8.0) Ur Specific [place] > or = 1.030 (1.005-1.030) Urine Protein 2+ H (Negative) Urine Glucose (UA) Negative (Negative) Urine Ketones Negative (Negative) Urine Occult Blood Trace-lysed H (Negative) Urine Nitrite Negative (Negative) Urine Bilirubin 1+ H (Negative) Urine Urobilinogen 0.2 (0.2-1.0) Ur Leukocyte Esterase Negative (Negative) Urine RBC 0-5 (0-5) /hpf Urine WBC 0-5 (0-5) /hpf Ur Epithelial Cells 0-5 (0-5) /hpf Urine Bacteria Moderate H (FEW) /hpf Urine Mucus Not seen (FEW) /hpf Salicylates (2.8-20) mg/dL Urine Opiates Screen (NEGATIVE) Ur Buprenorphine Scrn (NEGATIVE) Ur Oxycodone Screen (NEGATIVE) Urine Methadone Screen (NEGATIVE) Ur Propoxyphene Screen (NEGATIVE) Acetaminophen (10-30) ug/mL Ur Barbiturates Screen (NEGATIVE) Ur Tricyclics Screen (NEGATIVE) Ur Phencyclidine Scrn (NEGATIVE) Ur Amphetamine Screen (NEGATIVE) U Methamphetamines Scrn (NEGATIVE) U Benzodiazepines Scrn (NEGATIVE) U Cocaine Metab Screen (NEGATIVE) U Marijuana (THC) Screen (NEGATIVE) Ethyl Alcohol (0.00) gm% 04/22/17 Range/Units 19:46 WBC (3.98-10.04) K/mm3 RBC (3.98-5.22) M/mm3 Hgb (11.2-15.7) gm/L Hct (34.1-44.9) % MCV (79.4-94.8) fl MCH (25.6-32.2) pg MCHC (32.2-35.5) g/dl RDW Std Deviation (36.4-46.3) fL Plt Count (182-369) K/mm3 MPV (9.4-12.3) fl Neut % (Auto) (34.0-71.1) % Lymph % (Auto) (19.3-51.7) % [place] % (Auto) (4.7-12.5) % Eos % (Auto) (0.7-5.8) Baso % (Auto) (0.1-1.2) % Neut # (Auto) (1.56-6.13) K/mm3 Lymph # (Auto) (1.18-3.74) K/mm3 [place] # (Auto) (0.24-0.36) K/mm3 Eos # (Auto) (0.04-0.36) K/mm3 Baso # (Auto) (0.01-0.08) K/mm3 Manual Slide Review Sodium (136-145) mEq/L Potassium (3.5-5.1) mEq/L Chloride (98-107) mEq/L Carbon Dioxide (21-32) mEq/L Anion Gap (5-15) BUN (7-18) mg/dL Creatinine (0.55-1.02) mg/dL Est Cr Clr Drug Dosing mL/min Estimated GFR (MDRD) (>60) mL/min BUN/Creatinine Ratio (14-18) Glucose (74-106) mg/dL Calcium (8.5-10.1) mg/dL Total Bilirubin (0.2-1.0) mg/dL AST (15-37) U/L ALT (14-59) U/L Alkaline Phosphatase (46-116) U/L C-Reactive Protein (<1.0) mg/dL Total Protein (6.4-8.2) g/dl Albumin (3.4-5.0) g/dl Globulin gm/dL Albumin/Globulin Ratio (1-2) Free T4 (0.76-1.46) ng/dL TSH 3rd Generation (0.358-3.74) uIU/mL Urine Color (Yellow) Urine Appearance (Clear) Urine pH (5.0-8.0) Ur Specific [place] (1.005-1.030) Urine Protein (Negative) Urine Glucose (UA) (Negative) Urine Ketones (Negative) Urine Occult Blood (Negative) Urine Nitrite (Negative) Urine Bilirubin (Negative) Urine Urobilinogen (0.2-1.0) Ur Leukocyte Esterase (Negative) Urine RBC (0-5) /hpf Urine WBC (0-5) /hpf Ur Epithelial Cells (0-5) /hpf Urine Bacteria (FEW) /hpf Urine Mucus (FEW) /hpf Salicylates (2.8-20) mg/dL Urine Opiates Screen Negative (NEGATIVE) Ur Buprenorphine Scrn Negative (NEGATIVE) Ur Oxycodone Screen Negative (NEGATIVE) Urine Methadone Screen Negative (NEGATIVE) Ur Propoxyphene Screen Negative (NEGATIVE) Acetaminophen (10-30) ug/mL Ur Barbiturates Screen Negative (NEGATIVE) Ur Tricyclics Screen Negative (NEGATIVE) Ur Phencyclidine Scrn Negative (NEGATIVE) Ur Amphetamine Screen Presumptive positive H (NEGATIVE) U Methamphetamines Scrn Presumptive positive H (NEGATIVE) U Benzodiazepines Scrn Presumptive positive H (NEGATIVE) U Cocaine Metab Screen Negative (NEGATIVE) U Marijuana (THC) Screen Negative (NEGATIVE) Ethyl Alcohol (0.00) gm% Medications Discontinued Medications Generic Name Dose Route Start Last Admin Trade Name Naseemq PRN Reason Stop Dose Admin Gabapentin 300 mg 04/23/17 01:50 Neurontin PO 04/23/17 01:51 ONETIME ONE Haloperidol Lactate 5 mg 04/22/17 17:51 04/22/17 18:02 Haldol IM 04/22/17 17:52 5 mg ONETIME ONE Administration Lorazepam 2 mg 04/22/17 17:51 04/22/17 18:03 Ativan IM 04/22/17 17:52 2 mg ONETIME ONE Administration Re-Assessment/Re-Exam: I spoke with [facility] in [place] they have no psych beds. The patient's labs have returned. She is + for methamphetamin today which was negative yesterday. Her TSH has significantly increased from 8 yesterday to 41 today. Remainder of her labs are unremarkable. Cannot confirm or deny if she is taking her levothyroxine as prescribed. Free T 4 is slighly low at 0.64. Discussed case with Dr. Richter, feels she is stable enough for inpatient psych. I spoke with Dr. Hussein at [facility] in [place]. They have a bed. Given her lethargy yeasterday and change in TSH today does not feel comfortable taking the patient. Discussed case with Dr. Tovar. ICU is on diversion, she feels she needs s higher level of care. Discussed the case with Dr. Ospina hospitalist in [place]. She agrees to accept the patient. Plan will be to transport by ground ambulance with [facility] . [facility] paperwork has been filled out. [facility] department was here to serve restrain order filed by her . They were unaware of yesterdays events involving her and could not confirm if she has been selling narcotics. ER mail clerk called [place] [facility] - they confirm report from EMS yesterday that has filed against her for selling narcotics for marijuana. Patient admitted to using marijuana yesterday. Discharge vs Psych Eval/Treatment:: 04/23/17 03:18 plan: patient will go by ambulance to [facility] Dr. Silva accepting. She will be a direct admission to the medical floor. [facility] paperwork has been filled out. Departure - Departure Time of Disposition: 00:00 Disposition: DC/Tfer to Acute Hospital 02 Condition: Fair Clinical Impression: Depressive disorder, Elevated TSH, Pain management contract agreement, Suicidal ideation - Discharge Information Referrals: PCP,None [Primary Care Provider] - Adrianna Mcneill, [employer] SPECIALIST [Ordering Only Provider] - Suha Fernandez MD [Physician] - Forms: ED Department Discharge Additional Instructions: Patient will e transported to [facility] in [place]. Direct admission to Dr. Ospina.
[2017-04-23] MEDS ORDERED: Gabapentin 300 MG Cap PO ONE (01:50)
[2017-04-23] MEDS ORDERED: Haloperidol 5 MG Tab PO ONE (07:20)
[2017-04-23] MEDS ORDERED: LORazepam 1 MG Tab PO ONE (07:20)
[2017-04-23] MEDS ORDERED: LORazepam 2 MG/ML SDV IVPUSH ONE (10:04)
[2017-04-23] MEDS ORDERED: LORazepam 0.5 MG Tab PO ONE ×2 (10:09→11:46)
[2017-04-23] MEDS ORDERED: Levothyroxine 100 MCG Tab PO ONE (10:12)
[2017-04-23 11:37] VITALS: BP 113/93
[2017-04-24] MEDS ORDERED: Levothyroxine 100 MCG Tab PO SCH (06:00)
== END 2017-04-23 12:30 ==
LOC: JD.ED 17:36
DX: F32.9 Major depressive disorder, single episode, unspecified (principal); R94.6 Abnormal results of thyroid function studies; R45.851 Suicidal ideations; E03.9 Hypothyroidism, unspecified; Z79.899 Other long term (current) drug therapy; Z87.440 Personal history of urinary (tract) infections; Z96.659 Presence of unspecified artificial knee joint; Z88.6 Allergy status to analgesic agent
CPT/HCPCS: 36415; 80053; 80306; 81001; 84439; 84443; 85025; 86140; 96372; 99285; A9270; G0480; J1630; J2060; 99284

== ENCOUNTER 2017-06-30 13:02 | Emergency (ER) | payer BC, OTHER ==
[2017-06-30 13:17] VITALS: BP 117/77
[2017-06-30] MEDS ORDERED: LORazepam 2 MG/ML SDV IM ONE (13:40)
[2017-06-30] MEDS ORDERED: Sodium Chloride 0.9% 10 ML Syringe FLUSH PRN (13:45)
[2017-06-30] MEDS ORDERED: LORazepam 2 MG/ML SDV IVPUSH ONE (13:45)
[2017-06-30] MEDS ORDERED: Sodium Chloride 0.9% 1,000 ML IV ONE (13:45)
[2017-06-30] MEDS ORDERED: Acetaminophen 325 MG Tab PO ONE (13:46)
--- NOTE | 2017-06-30 13:46 | EDM.PDOCBH ---
ED HPI GENERAL MEDICAL PROBLEM - General Chief Complaint: Behavioral/Psych Stated Complaint: [facility] Time Seen by Provider: 06/30/17 13:10 Source of Information: Reports: Patient, EMS History Limitations: Reports: Other (Patient is under the influence of some form of recreational drug.) - History of Present Illness INITIAL COMMENTS - FREE TEXT/NARRATIVE: Patient is a 51-year-old female with a long history of amphetamine and narcotic pain medication use. Presents to the ED via ambulance with concerns of headache , neck discomfort, right-sided chest discomfort, back pain, bilateral knee pain , and right ankle pain. She is quite anxious but appears to be under the influence of some form of recreational drug. Patient states yesterday was at the top of her staircase after helping her son with things in his room. While walking down a set of stairs she missed stepped on a third step from the top and fell landing on some items at the base of the stairs. She denies any loss of consciousness. She remembers all events prior during and after. States she hit the right side of her head on the wall while falling. She questions possibility of missing a full day with questioning. She is quite confused on appointment times with her PCP. She she initially stated she was procedures PCP tomorrow to obtain a handicap pass. Then stated she had appointment today to have the handicap pass sign. She has chronic bilateral knee discomfort right greater than left. Utilize a cane to ambulate. She's had 2 surgeries to the right knee. States today she was also have an appointment to check her thyroid levels. She presented to the ED with a fever. She has no infectious symptoms. Patient denies any chest pain, shortness of breath, abdominal pain, dysuria, numbness and tingling to extremities, and or focal neurological deficits. She denies using any recreational drugs today. He denies any alcohol use. She does not smoke. Right Knee Pain Score (Numeric/FACES): 5 - Related Data Allergies Allergy/AdvReac Type Severity Reaction Status Date / Time ibuprofen Allergy Cannot Verified 06/30/17 13:17 Remember Home Meds: Home Meds oxyCODONE HCl/Acetaminophen [Percocet 10-325 mg Tablet] 1 tab PO Q4H PRN MDD 6 tablets/24hours 04/21/17 [History] Amphetamine/Dextroamphetamine [Adderall XR] 2 cap PO DAILY 04/22/17 [History] DULoxetine [Cymbalta] 60 mg PO BID 04/22/17 [History] Diazepam [Valium] 10 mg PO TID PRN 04/22/17 [History] Gabapentin [Neurontin] 600 mg PO TID 04/22/17 [History] Zolpidem [Ambien CR] 12.5 mg PO BEDTIME 04/22/17 [History] traZODone 200 - 300 mg PO BEDTIME 04/22/17 [History] Levofloxacin [Levaquin] 500 mg PO DAILY #5 tab 06/30/17 [Rx] Levothyroxine [Synthroid] 100 mcg PO DAILY 06/30/17 [History] Morphine 30 mg PO BEDTIME 06/30/17 [History] Past Medical History HEENT History: Reports: Impaired Vision, Other (See Below) Other HEENT History: wears dentures Genitourinary History: Reports: UTI, Recurrent [employer] History: Reports: Psychiatric History: Reports: Anxiety, Bipolar, Depression Endocrine/Metabolic History: Reports: Hypothyroidism Hematologic History: Reports: Anemia, B12 Deficiency Dermatologic History: Reports: Other (See Below) Other Dermatologic History: excess skin removal surgery - Past Surgical History HEENT Surgical History: Reports: Tonsillectomy GI Surgical History: Reports: Bariatric Procedure Musculoskeletal Surgical History: Reports: Knee Replacement Social & Family History - Family History Family Medical History: Noncontributory - Tobacco Use Smoking Status *Q: Never Smoker Second Hand Smoke Exposure: No - Caffeine Use Caffeine Use: Reports: None - Recreational Drug Use Recreational Drug Use: No ED ROS GENERAL - Review of Systems Review Of Systems: See Below Constitutional: Reports: No Symptoms HEENT: Reports: No Symptoms Respiratory: Reports: No Symptoms Cardiovascular: Reports: No Symptoms GI/Abdominal: Reports: No Symptoms Musculoskeletal: Reports: Neck Pain, Joint Pain (Right and left knee) ED EXAM, BEHAVIORAL HEALTH - Physical Exam Exam: See Below Exam Limited By: No Limitations General Appearance: Alert, Anxious Eye Exam: Bilateral Eye: EOMI, Normal Inspection, Nystagmus (None noted), PERRL (No noted), Vision Changes (None noted) Ears: Hearing Grossly Normal Nose: Normal Inspection Throat/Mouth: Normal Inspection, Normal Oropharynx, Normal Voice, No Airway Compromise Head: Other Neck: Normal Inspection, Supple, Full Range of Motion, Tender Midline. No: Limited Range of Motion Respiratory/Chest: No Respiratory Distress, Lungs Clear, Normal Breath Sounds, No Accessory Muscle Use, Other (Tenderness noted to the rightlateral chest. ) Cardiovascular: Normal Peripheral Pulses, Regular Rate, Rhythm, No Murmur GI/Abdominal: Normal Bowel Sounds, Soft, Non-Tender, No Organomegaly, No Distention Back Exam: Normal Inspection COURSE, BEHAVIORAL HEALTH COMP - Course Vital Signs: Last Vital Signs Temp 98.7 F 06/30/17 15:45 Pulse 88 06/30/17 13:07 Resp 25 H 06/30/17 15:45 BP 117/77 06/30/17 13:07 Pulse Ox 96 06/30/17 15:45 Orders, Labs, Meds: Active Orders 24 hr Category Date Time Status EKG Documentation Completion [RC] STAT Care 06/30/17 13:35 Active Peripheral IV Care [RC] . DIRECTED Care 06/30/17 13:45 Active CULTURE BLOOD [BC] Stat Lab 06/30/17 13:55 Received CULTURE BLOOD [BC] Stat Lab 06/30/17 14:00 Received CULTURE URINE [RM] Stat Lab 06/30/17 13:50 Received DRUG SCREEN, URINE [URCHEM] Stat Lab 06/30/17 13:50 Ordered MYOGLOBIN,URN Stat Lab 06/30/17 13:50 Received T4 FREE [CHEM] Stat Lab 06/30/17 13:55 Ordered Blood Culture x2 Reflex Set [OM.PC] Stat Oth 06/30/17 13:43 Ordered Peripheral IV Insertion Adult [OM.PC] Routine Oth 06/30/17 13:45 Ordered Laboratory Tests 06/30/17 06/30/17 06/30/17 Range/Units 13:50 13:50 13:55 WBC 7.35 (3.98-10.04) K/mm3 RBC 4.04 (3.98-5.22) M/mm3 Hgb 12.2 (11.2-15.7) gm/L Hct 38.0 (34.1-44.9) % MCV 94.1 (79.4-94.8) fl MCH 30.2 (25.6-32.2) pg MCHC 32.1 L (32.2-35.5) g/dl RDW Std Deviation 44.4 (36.4-46.3) fL Plt Count 218 (182-369) K/mm3 MPV 10.3 (9.4-12.3) fl Neutrophils % (Manual) 60 (40-60) % Band Neutrophils % 0 (0-10) % Lymphocytes % (Manual) 30 (20-40) % Atypical Lymphs % 0 % Monocytes % (Manual) 7 (2-10) % Eosinophils % (Manual) 1 (0.7-5.8) % Basophils % (Manual) 2 H (0.1-1.2) Platelet Estimate Adequate Plt Morphology Comment Normal RBC Morph Comment Normal Sodium (136-145) mEq/L Potassium (3.5-5.1) mEq/L Chloride (98-107) mEq/L Carbon Dioxide (21-32) mEq/L Anion Gap (5-15) BUN (7-18) mg/dL Creatinine (0.55-1.02) mg/dL Est Cr Clr Drug Dosing mL/min Estimated GFR (MDRD) (>60) mL/min BUN/Creatinine Ratio (14-18) Glucose (74-106) mg/dL Lactic Acid (0.4-2.0) mmol/L Calcium (8.5-10.1) mg/dL Total Bilirubin (0.2-1.0) mg/dL AST (15-37) U/L ALT (14-59) U/L Alkaline Phosphatase (46-116) U/L Creatine Kinase (26-192) U/L Total Protein (6.4-8.2) g/dl Albumin (3.4-5.0) g/dl Globulin gm/dL Albumin/Globulin Ratio (1-2) Free T4 (0.76-1.46) ng/dL TSH 3rd Generation (0.358-3.74) uIU/mL Urine Color Yellow (Yellow) Urine Appearance Slt cloudy H (Clear) Urine pH 6.0 (5.0-8.0) Ur Specific [place] 1.025 (1.005-1.030) Urine Protein 1+ H (Negative) Urine Glucose (UA) Negative (Negative) Urine Ketones Negative (Negative) Urine Occult Blood 2+ H (Negative) Urine Nitrite Negative (Negative) Urine Bilirubin Negative (Negative) Urine Urobilinogen 0.2 (0.2-1.0) Ur Leukocyte Esterase 1+ H (Negative) Urine RBC 5-10 H (0-5) /hpf Urine WBC 20-30 H (0-5) /hpf Ur Epithelial Cells 10-20 H (0-5) /hpf Calcium Oxalate Crystal Moderate H (NONE) Urine Bacteria Few (FEW) /hpf Urine Mucus Not seen (FEW) /hpf Urine Opiates Screen Presumptive positive H (NEGATIVE) Ur Buprenorphine Scrn Negative (NEGATIVE) Ur Oxycodone Screen Presumptive positive H (NEGATIVE) Urine Methadone Screen Negative (NEGATIVE) Ur Propoxyphene Screen Negative (NEGATIVE) Ur Barbiturates Screen Negative (NEGATIVE) Ur Tricyclics Screen Negative (NEGATIVE) Ur Phencyclidine Scrn Negative (NEGATIVE) Ur Amphetamine Screen Presumptive positive H (NEGATIVE) U Methamphetamines Scrn Negative (NEGATIVE) U Benzodiazepines Scrn Presumptive positive H (NEGATIVE) U Cocaine Metab Screen Negative (NEGATIVE) U Marijuana (THC) Screen Negative (NEGATIVE) Ethyl Alcohol (0.00) gm% 06/30/17 06/30/17 06/30/17 Range/Units 13:55 13:55 13:55 WBC (3.98-10.04) K/mm3 RBC (3.98-5.22) M/mm3 Hgb (11.2-15.7) gm/L Hct (34.1-44.9) % MCV (79.4-94.8) fl MCH (25.6-32.2) pg MCHC (32.2-35.5) g/dl RDW Std Deviation (36.4-46.3) fL Plt Count (182-369) K/mm3 MPV (9.4-12.3) fl Neutrophils % (Manual) (40-60) % Band Neutrophils % (0-10) % Lymphocytes % (Manual) (20-40) % Atypical Lymphs % % Monocytes % (Manual) (2-10) % Eosinophils % (Manual) (0.7-5.8) % Basophils % (Manual) (0.1-1.2) Platelet Estimate Plt Morphology Comment RBC Morph Comment Sodium 133 L (136-145) mEq/L Potassium 3.5 (3.5-5.1) mEq/L Chloride 97 L (98-107) mEq/L Carbon Dioxide 28 (21-32) mEq/L Anion Gap 11.5 (5-15) BUN 15 (7-18) mg/dL Creatinine 1.0 (0.55-1.02) mg/dL Est Cr Clr Drug Dosing 70.34 mL/min Estimated GFR (MDRD) 59 (>60) mL/min BUN/Creatinine Ratio 15.0 (14-18) Glucose 72 L (74-106) mg/dL Lactic Acid 0.6 (0.4-2.0) mmol/L Calcium 9.1 (8.5-10.1) mg/dL Total Bilirubin 0.3 (0.2-1.0) mg/dL AST 24 (15-37) U/L ALT 17 (14-59) U/L Alkaline Phosphatase 70 (46-116) U/L Creatine Kinase 224 H (26-192) U/L Total Protein 7.1 (6.4-8.2) g/dl Albumin 3.6 (3.4-5.0) g/dl Globulin 3.5 gm/dL Albumin/Globulin Ratio 1.0 (1-2) Free T4 (0.76-1.46) ng/dL TSH 3rd Generation 12.155 H (0.358-3.74) uIU/mL Urine Color (Yellow) Urine Appearance (Clear) Urine pH (5.0-8.0) Ur Specific [place] (1.005-1.030) Urine Protein (Negative) Urine Glucose (UA) (Negative) Urine Ketones (Negative) Urine Occult Blood (Negative) Urine Nitrite (Negative) Urine Bilirubin (Negative) Urine Urobilinogen (0.2-1.0) Ur Leukocyte Esterase (Negative) Urine RBC (0-5) /hpf Urine WBC (0-5) /hpf Ur Epithelial Cells (0-5) /hpf Calcium Oxalate Crystal (NONE) Urine Bacteria (FEW) /hpf Urine Mucus (FEW) /hpf Urine Opiates Screen (NEGATIVE) Ur Buprenorphine Scrn (NEGATIVE) Ur Oxycodone Screen (NEGATIVE) Urine Methadone Screen (NEGATIVE) Ur Propoxyphene Screen (NEGATIVE) Ur Barbiturates Screen (NEGATIVE) Ur Tricyclics Screen (NEGATIVE) Ur Phencyclidine Scrn (NEGATIVE) Ur Amphetamine Screen (NEGATIVE) U Methamphetamines Scrn (NEGATIVE) U Benzodiazepines Scrn (NEGATIVE) U Cocaine Metab Screen (NEGATIVE) U Marijuana (THC) Screen (NEGATIVE) Ethyl Alcohol 0.00 (0.00) gm% 04/19/18 Range/Units 13:55 WBC (3.98-10.04) K/mm3 RBC (3.98-5.22) M/mm3 Hgb (11.2-15.7) gm/L Hct (34.1-44.9) % MCV (79.4-94.8) fl MCH (25.6-32.2) pg MCHC (32.2-35.5) g/dl RDW Std Deviation (36.4-46.3) fL Plt Count (182-369) K/mm3 MPV (9.4-12.3) fl Neutrophils % (Manual) (40-60) % Band Neutrophils % (0-10) % Lymphocytes % (Manual) (20-40) % Atypical Lymphs % % Monocytes % (Manual) (2-10) % Eosinophils % (Manual) (0.7-5.8) % Basophils % (Manual) (0.1-1.2) Platelet Estimate Plt Morphology Comment RBC Morph Comment Sodium (136-145) mEq/L Potassium (3.5-5.1) mEq/L Chloride (98-107) mEq/L Carbon Dioxide (21-32) mEq/L Anion Gap (5-15) BUN (7-18) mg/dL Creatinine (0.55-1.02) mg/dL Est Cr Clr Drug Dosing mL/min Estimated GFR (MDRD) (>60) mL/min BUN/Creatinine Ratio (14-18) Glucose (74-106) mg/dL Lactic Acid (0.4-2.0) mmol/L Calcium (8.5-10.1) mg/dL Total Bilirubin (0.2-1.0) mg/dL AST (15-37) U/L ALT (14-59) U/L Alkaline Phosphatase (46-116) U/L Creatine Kinase (26-192) U/L Total Protein (6.4-8.2) g/dl Albumin (3.4-5.0) g/dl Globulin gm/dL Albumin/Globulin Ratio (1-2) Free T4 0.79 (0.76-1.46) ng/dL TSH 3rd Generation (0.358-3.74) uIU/mL Urine Color (Yellow) Urine Appearance (Clear) Urine pH (5.0-8.0) Ur Specific [place] (1.005-1.030) Urine Protein (Negative) Urine Glucose (UA) (Negative) Urine Ketones (Negative) Urine Occult Blood (Negative) Urine Nitrite (Negative) Urine Bilirubin (Negative) Urine Urobilinogen (0.2-1.0) Ur Leukocyte Esterase (Negative) Urine RBC (0-5) /hpf Urine WBC (0-5) /hpf Ur Epithelial Cells (0-5) /hpf Calcium Oxalate Crystal (NONE) Urine Bacteria (FEW) /hpf Urine Mucus (FEW) /hpf Urine Opiates Screen (NEGATIVE) Ur Buprenorphine Scrn (NEGATIVE) Ur Oxycodone Screen (NEGATIVE) Urine Methadone Screen (NEGATIVE) Ur Propoxyphene Screen (NEGATIVE) Ur Barbiturates Screen (NEGATIVE) Ur Tricyclics Screen (NEGATIVE) Ur Phencyclidine Scrn (NEGATIVE) Ur Amphetamine Screen (NEGATIVE) U Methamphetamines Scrn (NEGATIVE) U Benzodiazepines Scrn (NEGATIVE) U Cocaine Metab Screen (NEGATIVE) U Marijuana (THC) Screen (NEGATIVE) Ethyl Alcohol (0.00) gm% Medications Discontinued Medications Generic Name Dose Route Start Last Admin Trade Name Yecenia PRN Reason Stop Dose Admin Acetaminophen 975 mg 06/30/17 13:46 06/30/17 14:34 Tylenol PO 06/30/17 13:47 975 mg NOW ONE Administration Sodium Chloride 1,000 mls @ 250 mls/hr 06/30/17 13:45 06/30/17 14:37 Normal Saline IV 06/30/17 17:44 250 mls/hr ASDIRECTED ONE Administration Levofloxacin/Dextrose 750 mg/ 150 mls @ 100 mls/hr 06/30/17 15:55 06/30/17 16 :16 Premix IV 06/30/17 17:24 Not Given ONETIME ONE Levofloxacin 750 mg 06/30/17 16:10 06/30/17 16:39 Levaquin PO 06/30/17 16:11 750 mg ONETIME ONE Administration Lorazepam 1 mg 06/30/17 13:40 06/30/17 14:41 Ativan IM 06/30/17 13:41 Not Given ONETIME ONE Lorazepam 1 mg 06/30/17 13:45 06/30/17 14:37 Ativan IVPUSH 06/30/17 13:46 1 mg ONETIME ONE Administration Sodium Chloride 10 ml 06/30/17 13:45 06/30/17 14:36 Saline Flush FLUSH 10 ml ASDIRECTED PRN Administration Keep Vein Open Re-Assessment/Re-Exam: Patient is alert and oriented 3. She complains of right-sided head discomfort, midline cervical neck pain, right-sided chest discomfort, bilateral knee discomfort, and right-sided ankle pain. She appears to be under the influence of some form of recreational drug. Initial labs and studies will include CBC, chem 14, urine drug tox, lactic acid , TSH, UA, FT4, serum EtOH, EKG, x-ray of the: ankle/chest/knees bilaterally/ lumbar spine/thoracic spine, head CT, and cervical spine CT. EKG: Sinus rhythm at a rate of [address] changes. On initial evaluation patient's temperature is 100.8. On rechecking is 100.4. I have ordered blood cultures 2. Peripheral IV with NS 250mls/hr and tylenol 975mg PO. Ativan changed to IV. Unclear etiology of pain. She has no findings concerning for infectious. With reviewing her medications she is on rifampin 300 mg twice a day. Do not have clear etiology why. Will obtain records from [place]. 1416 Nursing staff has contacted PCP at [facility]. They are unaware why patient is on rifampin. Med list from pharmacy is pending. 1423 Patients PCP nurse called back and states patient was on rifampin for 30days in March for cellulitis of the upper extremity,"Bug Bite". CT cervical spine impression moderate degenerative changes probably at C5-C6 and C6-C7. Scoliosis. Nothing acute is seen on CT study of cervical spine. Head CT impression: Nothing acute is seen on noncontrast head CT exam. X-ray of the chest, right knee, right ankle, left knee, and thoracic spine did not reveal any acute bony abnormalities. Lumbar spine x-ray did show slight disc space narrowing at L3/L4. Labs reviewed: White blood cell count 7.35, hemoglobin 12.2, platelet count 218 , sodium 133, potassium 3.5, hCG less than 0.5, creatinine 1.0, glucose 72, lactic acid 0.6, current to 24, TSH 12.155, and free T4 0.79. CK mildly elevated. UA appearance cloudy, protein one plus, occult blood 2+, leukocyte Estrace one plus, urine rbc's 5-10, urine wbc's 20-30, urine epithelial cells 10-20, calcium oxylate crystal moderate, bacteria few, mucus not seen. Urine drug tox positive for opiates, oxycodone, amphetamine, benzodiazepines. Serum EtOH 0.00. 1520 Reassessment, patient is looking at her phone much more relaxed. She offers no complaints. Temp recheck: 98.9 F. Patient denies dysuria. She has history of frequent uti's in the past. Reviewed previous micro on urine. Contaminated with mixed tami. Concerned about followup by patient. Ordered Levaquin 750mg IV. Per nursing staff patient did pull the IV out. IV Levaquin dose was changed to by mouth dose. We'll discharge patient home with instructions as documented. Departure - Departure Time of Disposition: 15:54 Disposition: Home, Self-Care 01 Condition: Good Clinical Impression: Elevated TSH UTI (urinary tract infection) Qualifiers: Urinary tract infection type: site unspecified Hematuria presence: with hematuria Qualified Code(s): N39.0 - Urinary tract infection, site not specified Proteinuria Qualifiers: Proteinuria type: unspecified Qualified Code(s): R80.9 - Proteinuria, unspecified Hematuria Qualifiers: Hematuria type: other microscopic Qualified Code(s): R31.29 - Other microscopic hematuria Fever Qualifiers: Fever type: unspecified Qualified Code(s): R50.9 - Fever, unspecified - Discharge Information Prescriptions: Levofloxacin [Levaquin] 500 mg PO DAILY #5 tab Instructions: Urinary Tract Infection, Adult, [id number], Urinary Tract Infection, Adult Referrals: Suha Fernandez MD [Primary Care Provider] - Forms: ED Department Discharge Additional Instructions: Take levaquin as prescribed. Push the fluids. Followup with PCP at conclusion of therapy for reevaluation. As indicated he had elevated TSH, proteinuria, and hematuria. Repeat labs will be indicated. Return to the E.D. if you develop any worsening symptoms. Utilize tylenol for fever. No driving today since receiving a sedative medication in the E.D. - My Orders Last 24 Hours: My Active Orders 06/30/17 13:35 EKG Documentation Completion [RC] STAT 06/30/17 13:43 Blood Culture x2 Reflex Set [OM.PC] Stat 06/30/17 13:45 Peripheral IV Care [RC] . DIRECTED Peripheral IV Insertion Adult [OM.PC] Routine 06/30/17 13:50 CULTURE URINE [RM] Stat DRUG SCREEN, URINE [URCHEM] Stat MYOGLOBIN,URN Stat 06/30/17 13:55 CULTURE BLOOD [BC] Stat T4 FREE [CHEM] Stat 06/30/17 14:00 CULTURE BLOOD [BC] Stat - Assessment/Plan Last 24 Hours: My Active Orders 06/30/17 13:35 EKG Documentation Completion [RC] STAT 06/30/17 13:43 Blood Culture x2 Reflex Set [OM.PC] Stat 06/30/17 13:45 Peripheral IV Care [RC] . DIRECTED Peripheral IV Insertion Adult [OM.PC] Routine 06/30/17 13:50 CULTURE URINE [RM] Stat DRUG SCREEN, URINE [URCHEM] Stat MYOGLOBIN,URN Stat 06/30/17 13:55 CULTURE BLOOD [BC] Stat T4 FREE [CHEM] Stat 06/30/17 14:00 CULTURE BLOOD [BC] Stat
--- NOTE | 2017-06-30 14:24 | CT ---
CT cervical spine Technique: Multiple axial sections were obtained from above C1 inferiorly to the bottom of T2. Reconstructed sagittal and coronal images were reviewed. Comparison: No prior cervical spine study. Findings: Moderate to severe disc space narrowing is noted at C5-C6 and C6-C7. Anterior osteophytes are seen at both these levels more prominent at C6-C7. Vertebral body heights are maintained. Other disc spaces are maintained. No fracture is identified. Mild scattered degenerative change is seen throughout the apophyseal joints. No bony central or bony neural foraminal stenosis is seen. No abnormal subluxation is seen on the reconstructed sagittal images. Scoliosis is present. Impression: 1. Moderate degenerative change primarily at C5-C6 and C6-C7. 2. Scoliosis. 3. Nothing acute is seen on CT study of the cervical spine. Diagnostic code #2
--- NOTE | 2017-06-30 14:26 | CT ---
Head CT Technique: Multiple axial sections through the brain were obtained. Intravenous contrast was not utilized. Findings: Ventricles along with basal cisterns and sulci over convexities are within normal limits for the patient's age. No abnormal parenchymal densities are seen. No evidence of intracranial hemorrhage. No midline shift or mass effect is seen. Bone window settings were reviewed which shows no acute calvarial abnormality. Visualized sinuses. Impression: 1. Nothing acute is seen on noncontrast head CT exam. Diagnostic code #1
--- NOTE | 2017-06-30 14:48 | CR ---
Chest: Frontal view of the chest was obtained. Comparison: Prior chest x-ray of 04/21/17. Heart size and mediastinum are within normal limits. Lungs are clear with no acute parenchymal densities. Mild degenerative change is seen within the spine. Impression: 1. Nothing acute is appreciated on frontal chest x-ray. Diagnostic code #1
--- NOTE | 2017-06-30 14:48 | CR ---
Right knee: AP and lateral views were obtained of the right knee. [place] patellar views of both knees were obtained. Comparison: Previous right knee study of 01/05/17. Right knee prosthesis is seen. Components are aligned. Underlying bony structures are intact. Impression: 1. Right knee prosthesis. Findings are stable from prior exam. 2. Nothing acute is seen. Diagnostic code #2
--- NOTE | 2017-06-30 14:48 | CR ---
Right ankle: Three views of the right ankle were obtained. Plantar spur is seen. Ankle mortise is symmetric. Small calcification noted off the medial malleolus which appears old. No acute fracture or other bony abnormality is seen. Impression: 1. Plantar spur. Other incidental finding. Nothing acute is seen. Diagnostic code #2
--- NOTE | 2017-06-30 15:00 | CR ---
Left knee: AP and lateral views of the left knee were obtained as well as bilateral sunrise patellar views. Right knee prosthesis is seen. Minimal spurring is noted off the lateral left patella on sunrise patellar view. Minimal medial joint space narrowing is noted with medial osteophytes. Several small calcifications are seen within the suprapatellar pouch. No acute fracture or other bony abnormality is seen. Impression: 1. Right knee prosthesis. 2. Slight degenerative change as noted above. Nothing acute is seen. Diagnostic code #2
--- NOTE | 2017-06-30 15:00 | CR ---
Lumbar spine: AP, lateral views of the lumbar spine were obtained. Comparison: No previous lumbar spine exam. Mild disc space narrowing is noted at L3-L4. Other disc spaces are maintained. Vertebral body heights are maintained. Pedicles as well as transverse and spinous processes are intact. No subluxation or fracture is seen. Impression: 1. Slight disc space narrowing at L3-L4. 2. Lumbar spine study is otherwise unremarkable. Diagnostic code #2
--- NOTE | 2017-06-30 15:00 | CR ---
Thoracic spine: AP and lateral views of the thoracic spine were obtained. Minimal scoliosis is seen. Vertebral body heights are maintained. Disc spaces are fairly well-preserved. Minimal scattered endplate osteophytes are seen. Pedicles appear intact. No subluxation or fracture is seen. Impression: 1. Minimal scoliosis. 2. Slight endplate osteophytes. 3. Nothing acute is seen on three-view thoracic spine study. Diagnostic code #2
[2017-06-30] MEDS ORDERED: Levofloxacin/Dextrose 5%-Water 750 MG in Premix Bag 1 BAG IV ONE (15:55)
[2017-06-30] MEDS ORDERED: Levofloxacin 750 MG Tab PO ONE (16:10)
== END 2017-06-30 16:58 | disposition home or self-care (01) ==
LOC: JD.ED 13:02 → SUPCPDRO 13:02 → JD.ED 16:58
DX: N39.0 Urinary tract infection, site not specified (principal); R80.9 Proteinuria, unspecified; R31.29 Other microscopic hematuria; R94.6 Abnormal results of thyroid function studies; Z88.6 Allergy status to analgesic agent; E03.9 Hypothyroidism, unspecified; Z79.899 Other long term (current) drug therapy
CPT/HCPCS: 36415; 70450; 71045; 72072; 72100; 72125; 73562; 73610; 80053; 80306; 81001; 82550; 83605; 83874; 84439; 84443; 85025; 87040; 87086; 87088; 87186; 93005; 96361; 96374; 99285; A9270; G0480; J2060; J7040; J7050; 99284

== ENCOUNTER 2018-05-13 13:02 | Emergency (ER) | payer BC, OTHER ==
[2018-05-13 13:27] VITALS: BP 136/78
[2018-05-13] MEDS ORDERED: Sodium Chloride 0.9% 1,000 ML IV SCH (15:00)
[2018-05-13] MEDS ORDERED: HYDROmorphone 1 MG/ML Syringe IVPUSH ONE ×2 (15:00→16:45)
[2018-05-13] MEDS ORDERED: Sodium Chloride 0.9% 10 ML Syringe FLUSH PRN (15:00)
--- NOTE | 2018-05-13 15:24 | EDM.PDOC ---
ED HPI GENERAL MEDICAL PROBLEM - General Chief Complaint: Abdominal Pain Stated Complaint: ABDOMINAL PAIN Time Seen by Provider: 05/13/18 14:16 Source of Information: Reports: Patient, RN Notes Reviewed History Limitations: Reports: No Limitations - History of Present Illness INITIAL COMMENTS - FREE TEXT/NARRATIVE: Patient is a 52-year-old female who is brought to the ED for the evaluation of upper abdominal pain. She states this pain started suddenly this morning around 2 AM. She did take some Gas-X and thought maybe this would help it did provide a little relief however the pain is still present. The patient notes that this is mainly in her left upper abdomen but does radiate to her right side. She states that she had a normal BM yesterday. She states that the pain kind of comes and goes in waves but is sharp and stabbing in nature when it is present the patient states she has not had any fever/chills, nausea/vomiting/ diarrhea, chest pain, or shortness of breath. She states she has had a gastric bypass in 2007 but denies any other abdominal surgeries so she still has her gallbladder and appendix. She states that she has not had any issues with her gallbladder. She states that she is able to eat and drink okay. He denies any trauma to the area, she further denies any issues with chronic constipation, IBS , or diverticulitis. She states that she does not smoke use alcohol or use drugs. She states that her primary care physician is Dr. Foy. Abdominal Pain Score (Numeric/FACES): 10 - Related Data Allergies Allergy/AdvReac Type Severity Reaction Status Date / Time ibuprofen Allergy Cannot Verified 05/13/18 13:19 Remember Home Meds: Home Meds oxyCODONE HCl/Acetaminophen [Percocet 10-325 mg Tablet] 1 tab PO TID PRN MDD 6 tablets/24hours 04/21/17 [History] Amphetamine/Dextroamphetamine [Adderall XR] 30 mg PO BID 04/22/17 [History] DULoxetine [Cymbalta] 60 mg PO BID 04/22/17 [History] Diazepam [Valium] 10 mg PO TID PRN 04/22/17 [History] Gabapentin [Neurontin] 800 mg PO TID PRN 04/22/17 [History] Zolpidem [Ambien CR] 12.5 mg PO BEDTIME 04/22/17 [History] traZODone 200 - 300 mg PO BEDTIME 04/22/17 [History] Levothyroxine [Synthroid] 125 mcg PO DAILY 06/30/17 [History] Morphine 30 mg PO BEDTIME 06/30/17 [History] Cyanocobalamin/Folic Acid [Vitamin J28-Cjrlz Acid] 1 tab PO DAILY 05/13/18 [ History] Dextroamphetamine/Amphetamine [Adderall 20 mg Tablet] 15 mg PO BEDTIME 05/13/18 [History] Ferrous Sulfate [Iron] 325 mg PO DAILY 05/13/18 [History] Lurasidone HCl [Latuda] 120 mg PO DAILY 05/13/18 [History] OXcarbazepine [Trileptal] 150 mg PO DAILY 05/13/18 [History] Oxybutynin Chloride [Ditropan Xl] 10 mg PO BID 05/13/18 [History] metFORMIN HCl [Metformin ER Gastric] 500 mg PO BEDTIME 05/13/18 [History] Past Medical History HEENT History: Reports: Impaired Vision, Other (See Below) Other HEENT History: wears dentures Genitourinary History: Reports: Urinary Incontinence 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: Psychiatric History: Reports: ADHD, Addiction, Anxiety, Bipolar, Depression Endocrine/Metabolic History: Reports: Hypothyroidism Hematologic History: Reports: Anemia, B12 Deficiency Dermatologic History: Reports: Other (See Below) Other Dermatologic History: excess skin removal surgery - Past Surgical History HEENT Surgical History: Reports: Tonsillectomy GI Surgical History: Reports: Bariatric Procedure Female Surgical History: Reports: Tubal Ligation Musculoskeletal Surgical History: Reports: Knee Replacement Dermatological Surgical History: Reports: Plastic Surgical Reconstruction/Repair Social & Family History - Family History Family Medical History: Noncontributory - Tobacco Use Smoking Status *Q: Never Smoker Second Hand Smoke Exposure: No - Caffeine Use Caffeine Use: Reports: Soda Other Caffeine Use: pills - Recreational Drug Use Recreational Drug Use: No - Living Situation & Occupation Living situation: Reports: , with Spouse, with Family (Son) Occupation: Unemployed ED ROS GENERAL - Review of Systems Review Of Systems: See Below Constitutional: Denies: Fever, Chills, Decreased Appetite, Weight Loss HEENT: Reports: No Symptoms Respiratory: Reports: No Symptoms Cardiovascular: Reports: No Symptoms Endocrine: Reports: No Symptoms GI/Abdominal: Reports: Abdominal Pain (upper abdominal pain). Denies: Constipation, Diarrhea, Decreased Appetite, Nausea, Vomiting : Reports: Flank Pain (left). Denies: Dysuria, Frequency Musculoskeletal: Reports: No Symptoms Skin: Reports: No Symptoms 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: Reports: No Symptoms Psychiatric: Reports: No Symptoms ED EXAM, GI/ABD - Physical Exam Exam: See Below Exam Limited By: No Limitations General Appearance: Alert, WD/WN, No Apparent Distress Eyes: Bilateral: Normal Appearance Ears: Normal External Exam Nose: Normal Inspection Throat/Mouth: Normal Inspection, Normal Oropharynx, No Airway Compromise Head: Atraumatic, Normocephalic Neck: Normal Inspection Respiratory/Chest: No Respiratory Distress, Lungs Clear, Normal Breath Sounds, No Accessory Muscle Use, Chest Non-Tender Cardiovascular: Normal Peripheral Pulses, Regular Rate, Rhythm, No Murmur GI/Abdominal Exam: Soft, No Distention, Tender (LUQ, RUQ, and LLQ), Abnormal Bowel Sounds (hypoactive). No: Rigid, Rebound Extremities: Normal Inspection, Normal Capillary Refill 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: Alert, Oriented, Normal Cognition, No Motor/Sensory Deficits Psychiatric: Normal Affect, Normal Mood Skin Exam: Warm, Dry, Intact, Normal Color, No Rash Course - Vital Signs Last Recorded V/S: Last Vital Signs Temp 96.8 F 05/13/18 13:15 Pulse 74 05/13/18 13:15 Resp 16 05/13/18 13:15 BP 136/78 05/13/18 13:15 Pulse Ox 98 05/13/18 13:15 - Orders/Labs/Meds Orders: Active Orders 24 hr Category Date Time Status Peripheral IV Care [RC] . DIRECTED Care 05/13/18 15:01 Active Peripheral IV Insertion Adult [OM.PC] Routine Oth 05/13/18 15:00 Ordered Labs: Laboratory Tests 05/13/18 05/13/18 05/13/18 Range/Units 15:20 15:20 16:15 WBC 5.96 (3.98-10.04) K/mm3 RBC 4.61 (3.98-5.22) M/mm3 Hgb 13.9 (11.2-15.7) gm/L Hct 42.2 (34.1-44.9) % MCV 91.5 (79.4-94.8) fl MCH 30.2 (25.6-32.2) pg MCHC 32.9 (32.2-35.5) g/dl RDW Std Deviation 40.9 (36.4-46.3) fL Plt Count 210 (182-369) K/mm3 MPV 9.7 (9.4-12.3) fl Neutrophils % (Manual) 59 (40-60) % Band Neutrophils % 0 (0-10) % Lymphocytes % (Manual) 32 (20-40) % Atypical Lymphs % 0 % Monocytes % (Manual) 5 (2-10) % Eosinophils % (Manual) 3 (0.7-5.8) % Basophils % (Manual) 1 (0.1-1.2) Platelet Estimate Adequate Plt Morphology Comment Normal RBC Morph Comment Normal Sodium 139 (136-145) mEq/L Potassium 3.7 (3.5-5.1) mEq/L Chloride 102 (98-107) mEq/L Carbon Dioxide 31 (21-32) mEq/L Anion Gap 9.7 (5-15) BUN 18 (7-18) mg/dL Creatinine 0.9 (0.55-1.02) mg/dL Est Cr Clr Drug Dosing 77.28 mL/min Estimated GFR (MDRD) > 60 (>60) mL/min BUN/Creatinine Ratio 20.0 H (14-18) Glucose 92 (74-106) mg/dL Calcium 9.2 (8.5-10.1) mg/dL Total Bilirubin 0.4 (0.2-1.0) mg/dL AST 19 (15-37) U/L ALT 25 (14-59) U/L Alkaline Phosphatase 75 (46-116) U/L Total Protein 7.0 (6.4-8.2) g/dl Albumin 3.7 (3.4-5.0) g/dl Globulin 3.3 gm/dL Albumin/Globulin Ratio 1.1 (1-2) Lipase 60 L (73-393) U/L Urine Color Yellow (Yellow) Urine Appearance Clear (Clear) Urine pH 7.5 (5.0-8.0) Ur Specific [place] 1.015 (1.005-1.030) Urine Protein Negative (Negative) Urine Glucose (UA) Negative (Negative) Urine Ketones Negative (Negative) Urine Occult Blood Negative (Negative) Urine Nitrite Negative (Negative) Urine Bilirubin Negative (Negative) Urine Urobilinogen 0.2 (0.2-1.0) Ur Leukocyte Esterase Trace H (Negative) Urine RBC Not seen (0-5) /hpf Urine WBC 0-5 (0-5) /hpf Ur Epithelial Cells 5-10 H (0-5) /hpf Amorphous Sediment Moderate H (NOT SEEN) /hpf Urine Bacteria Rare (FEW) /hpf Urine Mucus Not seen (FEW) /hpf Meds: Medications Discontinued Medications Generic Name Dose Route Start Last Admin Trade Name Freq PRN Reason Stop Dose Admin Hydromorphone HCl 0.5 mg 05/13/18 15:00 05/13/18 15:22 Dilaudid IVPUSH 05/13/18 15:01 0.5 mg ONETIME ONE Administration Hydromorphone HCl 0.5 mg 05/13/18 16:45 05/13/18 17:06 Dilaudid IVPUSH 05/13/18 16:46 1 mg ONETIME ONE Administration Sodium Chloride 1,000 mls @ 500 mls/hr 05/13/18 15:00 05/13/18 15:21 Normal Saline IV 500 mls/hr ASDIRECTED PRAVIN Administration Sodium Chloride 10 ml 05/13/18 15:00 05/13/18 15:22 Saline Flush FLUSH 10 ml ASDIRECTED PRN Administration Keep Vein Open - Re-Assessments/Exams Free Text/Narrative Re-Assessment/Exam: 05/13/18 15:29 Patient presents to the ED for upper abdominal pain. Etiology of her pain is unclear at this time, however I did order CBC, CMP, lipase and a UA for evaluation. I did order 0.5 mg IV Dilaudid with IV fluid bolus to be given as well. The patient did have one of her "pain episodes" while I was examining her and she did double over in the bed. As the pain subsided she appeared to be normal and without pain. 05/13/18 16:47 Patient was reassessed at bedside, and was made aware that her lab results were all within normal limits. It is likely that her pain is due to a backup of stool in her colon as as it is a diffuse abdominal pain. Did recommend that she obtain a bottle of magnesium citrate from a pharmacy or [facility] to a bowel cleanout at home to see if that doesn't help further guide further pain relief, have recommended that she take Tylenol if this does not provide pain relief. There is no acute bacterial infectious process going on with her at this ED visit. Departure - Departure Time of Disposition: 16:48 Disposition: Home, Self-Care 01 Condition: Fair Clinical Impression: Upper abdominal pain - Discharge Information *PRESCRIPTION DRUG MONITORING PROGRAM REVIEWED*: No *COPY OF PRESCRIPTION DRUG MONITORING REPORT IN PATIENT AKUA: No Instructions: Constipation, Adult, [id number], Abdominal Pain, Adult, Easy-to -Read Referrals: Suha Fernandez MD [Primary Care Provider] - Forms: ED Department Discharge Additional Instructions: You have been evaluated in the ED today for your upper abdominal pain. Please obtain a bottle of magnesium citrate from a pharmacy or [facility] for a bowel cleanout. Your symptoms today are likely due to constipation. You may take Tylenol 500 mg every 6 hours as needed for pain relief. Please increase your fluid intake, as this should help make the bowels moved faster. Please return to the ED if your symptoms change or worsen. - My Orders Last 24 Hours: My Active Orders 05/13/18 15:00 Peripheral IV Insertion Adult [OM.PC] Routine 05/13/18 15:01 Peripheral IV Care [RC] . DIRECTED - Assessment/Plan Last 24 Hours: My Active Orders 05/13/18 15:00 Peripheral IV Insertion Adult [OM.PC] Routine 05/13/18 15:01 Peripheral IV Care [RC] . DIRECTED
== END 2018-05-13 17:20 | disposition home or self-care (01) ==
LOC: JD.ED 13:02
DX: R10.10 Upper abdominal pain, unspecified (principal); E03.9 Hypothyroidism, unspecified; D64.9 Anemia, unspecified; Z79.899 Other long term (current) drug therapy; Z88.6 Allergy status to analgesic agent
CPT/HCPCS: 36415; 80053; 81001; 83690; 85007; 85027; 96361; 96374; 96376; 99284; J1170; J7040

== ENCOUNTER 2019-04-16 14:21 | Emergency (ER) | payer BC, MEDICARE ==
--- NOTE | 2019-04-16 16:45 | EDM.PDOCBH ---
ED HPI GENERAL MEDICAL PROBLEM - General Chief Complaint: Behavioral/Psych Stated Complaint: PSYCH EVAL Time Seen by Provider: 04/16/19 16:42 - History of Present Illness INITIAL COMMENTS - FREE TEXT/NARRATIVE: 53-year-old female comes in to the emergency room with several complaints, she thinks she has a urinary tract infection and her online psychiatrist recommended she come in. The patient has bipolar illness and is working herself off Cymbalta at the recommendation of the psychiatrist. She has been started on Latuda. In the past the patient has developed dizziness and lightheadedness while trying to back off the Cymbalta and she is doing it today. The drop from 60 mg a day to 30 mg a day is been a little more problematic. Currently she has her Latuda up to 120 mg a day and the Cymbalta down to 30 mg a day her dose before starting to wean off was 120 mg a day this was back down to 60 mg a day and then the jump from 60-30 seem to cause some problems. The patient is also been having some burning and frequency with urination. - Related Data Allergies Allergy/AdvReac Type Severity Reaction Status Date / Time ibuprofen Allergy Cannot Verified 04/16/19 15:34 Remember Home Meds: Home Meds oxyCODONE HCl/Acetaminophen [Percocet 10-325 mg Tablet] 1 tab PO TID PRN MDD 6 tablets/24hours 04/21/17 [History] Amphetamine/Dextroamphetamine [Adderall XR] 30 mg PO BID 04/22/17 [History] DULoxetine [Cymbalta] 60 mg PO BID 04/22/17 [History] Diazepam [Valium] 10 mg PO TID PRN 04/22/17 [History] Gabapentin [Neurontin] 800 mg PO TID PRN 04/22/17 [History] Zolpidem [Ambien CR] 12.5 mg PO BEDTIME 04/22/17 [History] traZODone 200 - 300 mg PO BEDTIME 04/22/17 [History] Levothyroxine [Synthroid] 125 mcg PO DAILY 06/30/17 [History] Morphine 30 mg PO BEDTIME 06/30/17 [History] Cyanocobalamin/Folic Acid [Vitamin D86-Hkmlz Acid] 1 tab PO DAILY 05/13/18 [ History] Dextroamphetamine/Amphetamine [Adderall 20 mg Tablet] 15 mg PO BEDTIME 05/13/18 [History] Ferrous Sulfate [Iron] 325 mg PO DAILY 05/13/18 [History] Lurasidone HCl [Latuda] 120 mg PO DAILY 05/13/18 [History] OXcarbazepine [Trileptal] 150 mg PO DAILY 05/13/18 [History] Oxybutynin Chloride [Ditropan Xl] 10 mg PO BID 05/13/18 [History] metFORMIN HCl [Metformin ER Gastric] 500 mg PO BEDTIME 05/13/18 [History] Nitrofurantoin Monohyd/M-Cryst [Macrobid 100 mg Capsule] 100 mg PO Q12H #14 capsule 04/16/19 [Rx] Past Medical History HEENT History: Reports: Impaired Vision, Other (See Below) Other HEENT History: wears dentures Cardiovascular History: Reports: None Respiratory History: Reports: None Genitourinary History: Reports: Urinary Incontinence 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: 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 History: Reports: Concussion Psychiatric History: Reports: ADHD, Addiction, Anxiety, Bipolar, Depression, Suicidal Ideation Endocrine/Metabolic History: Reports: Hypothyroidism Hematologic History: Reports: Anemia, B12 Deficiency Immunologic History: Reports: None Oncologic (Cancer) History: Reports: None Dermatologic History: Reports: Other (See Below) Other Dermatologic History: excess skin removal surgery - Infectious Disease History Infectious Disease History: Reports: None - Past Surgical History HEENT Surgical History: Reports: Tonsillectomy GI Surgical History: Reports: Bariatric Procedure Female Surgical History: Reports: Tubal Ligation Musculoskeletal Surgical History: Reports: Knee Replacement Dermatological Surgical History: Reports: Plastic Surgical Reconstruction/Repair Social & Family History - Family History Family Medical History: Noncontributory - Tobacco Use Smoking Status *Q: Never Smoker - Caffeine Use Caffeine Use: Reports: Energy Drinks, Soda Other Caffeine Use: pills - Recreational Drug Use Recreational Drug Use: No - Living Situation & Occupation Living situation: Reports: , with Spouse, with Family (Son) Occupation: Unemployed ED ROS GENERAL - Review of Systems Review Of Systems: See Below Constitutional: Reports: No Symptoms HEENT: Reports: No Symptoms Respiratory: Reports: No Symptoms Cardiovascular: Reports: No Symptoms Endocrine: Reports: No Symptoms GI/Abdominal: Reports: No Symptoms : Reports: Dysuria, Frequency, Urgency. Denies: Flank Pain, Urinary Retention Musculoskeletal: Reports: No Symptoms Skin: Reports: No Symptoms Psychiatric: Reports: Anxiety. Denies: Agitation, Hallucinations, Homicidal Ideation, Mood Lability, Suicidal Ideation ED EXAM, BEHAVIORAL HEALTH - Physical Exam Exam: See Below Exam Limited By: No Limitations General Appearance: Alert, No Apparent Distress Eye Exam: Bilateral Eye: Normal Inspection Ears: Normal External Exam, Normal Canal, Hearing Grossly Normal, Normal TMs Nose: Normal Inspection, Normal Mucosa, No Blood Throat/Mouth: Normal Inspection, Normal Lips, Normal Teeth, Normal Gums, Normal Oropharynx, Normal Voice, No Airway Compromise Head: Atraumatic, Normocephalic Neck: Normal Inspection, Supple, Non-Tender, Full Range of Motion. No: Lymphadenopathy (L), Lymphadenopathy (R) Respiratory/Chest: No Respiratory Distress, Lungs Clear, Normal Breath Sounds, No Accessory Muscle Use, Chest Non-Tender Cardiovascular: Regular Rate, Rhythm, No Edema, No Murmur GI/Abdominal: Normal Bowel Sounds, Soft, Non-Tender Back Exam: Normal Inspection. No: CVA Tenderness (L), CVA Tenderness (R) 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: Alert, Normal Mood/Affect, Oriented x 3 Psychiatric: Alert, Normal Affect, Normal Cognition, Oriented. No: Homicidal Thoughts, Suicidal Plan, Suicidal Thoughts Skin Exam: Warm, Dry, Intact COURSE, BEHAVIORAL HEALTH COMP - Course Orders, Labs, Meds: Active Orders 24 hr Category Date Time Status CULTURE URINE [RM] Stat Lab 04/16/19 17:40 Received Laboratory Tests 04/16/19 04/16/19 04/16/19 Range/Units 17:35 17:35 17:40 WBC 5.43 (3.98-10.04) K/mm3 RBC 4.03 (3.98-5.22) M/mm3 Hgb 12.2 D (11.2-15.7) gm/dl Hct 37.8 (34.1-44.9) % MCV 93.8 (79.4-94.8) fl MCH 30.3 (25.6-32.2) pg MCHC 32.3 (32.2-35.5) g/dl RDW Std Deviation 43.3 (36.4-46.3) fL Plt Count 248 (182-369) K/mm3 MPV 10.3 (9.4-12.3) fl Neut % (Auto) 39.7 (34.0-71.1) % Lymph % (Auto) 50.3 (19.3-51.7) % [place] % (Auto) 7.0 (4.7-12.5) % Eos % (Auto) 2.8 (0.7-5.8) Baso % (Auto) 0.2 (0.1-1.2) % Neut # (Auto) 2.16 (1.56-6.13) K/mm3 Lymph # (Auto) 2.73 (1.18-3.74) K/mm3 [facility] [place] # (Auto) 0.38 H (0.24-0.36) K/mm3 Eos # (Auto) 0.15 (0.04-0.36) K/mm3 Baso # (Auto) 0.01 (0.01-0.08) K/mm3 Sodium 137 (136-145) mEq/L Potassium 4.0 (3.5-5.1) mEq/L Chloride 103 (98-107) mEq/L Carbon Dioxide 27 (21-32) mEq/L Anion Gap 11.0 (5-15) BUN 18 (7-18) mg/dL Creatinine 0.9 (0.55-1.02) mg/dL Est Cr Clr Drug Dosing 76.42 mL/min Estimated GFR (MDRD) > 60 (>60) mL/min BUN/Creatinine Ratio 20.0 H (14-18) Glucose 87 (74-106) mg/dL Calcium 9.3 (8.5-10.1) mg/dL Total Bilirubin 0.3 (0.2-1.0) mg/dL AST 13 L (15-37) U/L ALT 26 (14-59) U/L Alkaline Phosphatase 69 (46-116) U/L Total Protein 6.5 (6.4-8.2) g/dl Albumin 3.6 (3.4-5.0) g/dl Globulin 2.9 gm/dL Albumin/Globulin Ratio 1.2 (1-2) TSH 3rd Generation 0.170 L (0.358-3.74) uIU/mL Urine Color Yellow (Yellow) Urine Appearance Slt cloudy H (Clear) Urine pH 6.0 (5.0-8.0) Ur Specific [place] > or = 1.030 (1.005-1.030) Urine Protein Negative (Negative) Urine Glucose (UA) Negative (Negative) Urine Ketones Negative (Negative) Urine Occult Blood Negative (Negative) Urine Nitrite Positive H (Negative) Urine Bilirubin Negative (Negative) Urine Urobilinogen 0.2 (0.2-1.0) Ur Leukocyte Esterase 1+ H (Negative) Urine RBC 0-5 (0-5) /hpf Urine WBC 10-20 H (0-5) /hpf Ur Squamous Epith Cells 5-10 H (0-5) /hpf Urine Bacteria Many H (FEW) /hpf Urine Mucus Few (FEW) /hpf Discharge vs Psych Eval/Treatment:: 04/16/19 19:35 She is not suicidal she is not homicidal she is alert and oriented her concurs with all the statements confirming this she is not committable at this time she does not believe she needs inpatient therapy. Currently there are trying to back off her Cymbalta and in the past that she has had dizziness when they backed off her Cymbalta she is down from 120 mg a day to 30 mg a day and will continue this for another 10 days they are working on the Latuda 80 mg 1-1/ 2 tablets, 120 mg, a day she should continue the dosing as recommended by psychiatry her labs show that she does have a urinary tract infection and we will treat this with Macrobid. Departure - Departure Time of Disposition: 19:37 Disposition: Home, Self-Care 01 Clinical Impression: Urinary tract infection Qualifiers: Urinary tract infection type: site unspecified Hematuria presence: with hematuria Qualified Code(s): N39.0 - Urinary tract infection, site not specified - Discharge Information Prescriptions: Nitrofurantoin Monohyd/M-Cryst [Macrobid 100 mg Capsule] 100 mg PO Q12H #14 capsule Referrals: Suha Fernandez MD [Primary Care Provider] - Forms: ED Department Discharge Additional Instructions: Return to the emergency room with any questions problems or worsening symptoms. Take the Macrobid as directed. While you are weaning off the Cymbalta use caution as we know this causes dizziness for you use the methods we discussed being slow to change her position and after you do change your physician make sure you are steady before you walk Sepsis Event Note - Evaluation Sepsis Screening Result: No Definite Risk - Focused Exam Date Exam was Performed: 04/16/19 Time Exam was Performed: 19:44 - My Orders Last 24 Hours: My Active Orders 04/16/19 17:40 CULTURE URINE [RM] Stat - Assessment/Plan Last 24 Hours: My Active Orders 04/16/19 17:40 CULTURE URINE [] Stat
== END 2019-04-16 19:50 | disposition home or self-care (01) ==
LOC: JD.ED 14:21
DX: N39.0 Urinary tract infection, site not specified (principal); R31.9 Hematuria, unspecified; B96.20 Unspecified Escherichia coli [E. coli] as the cause of diseases classified elsewhere; Z88.6 Allergy status to analgesic agent
CPT/HCPCS: 36415; 80053; 81001; 84443; 85025; 87086; 87088; 87186; 99283

== ENCOUNTER 2019-11-23 18:05 | Observation (INO) | payer BC, MEDICARE ==
[2019-11-23] MEDS ORDERED: Sodium Chloride 0.9% 10 ML Syringe FLUSH PRN (18:51)
--- NOTE | 2019-11-23 19:28 | CT ---
Head CT Technique: Multiple axial sections through the brain were obtained. Intravenous contrast was not utilized. Comparison: Prior head CT study of 04/12/18. Findings: Ventricles along with basal cisterns and sulci of the convexities appear within normal limits for the patient's age. No abnormal parenchymal densities are seen. No evidence of intracranial hemorrhage. No midline shift or mass-effect is appreciated. Small calcification is seen which is believed to be dural in location on the left side and is also felt to be incidental. Bone window settings were reviewed which shows no acute calvarial finding. Visualized mastoid sinuses and visualized paranasal sinuses show nothing acute. Impression: 1. Nothing acute is appreciated on noncontrast head CT exam. Diagnostic code #2 This report was dictated in MDT
--- NOTE | 2019-11-23 19:29 | CR ---
Chest: 2 views of the chest were obtained. Comparison: Prior chest x-ray of 06/30/17. Heart size and mediastinum are normal. Lungs are clear with no acute parenchymal change. Slight scoliosis is noted within spine. Mild degenerative endplate spurring is seen within the spine. Lucency is seen within the lateral left chest and difficult to exclude small pneumothorax. Impression: 1. Lucency within the lateral left chest. Difficult to exclude small pneumothorax. 2. Given the history of injury, recommend chest CT to further evaluate. Diagnostic code #9 This report was dictated in MDT
--- NOTE | 2019-11-23 19:44 | EDM.PDOC ---
ED HPI GENERAL MEDICAL PROBLEM - General Chief Complaint: 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 Problem Stated Complaint: DIZZY,VISION PROBLEMS Time Seen by Provider: 11/23/19 19:03 Source of Information: Reports: Patient History Limitations: Reports: No Limitations - History of Present Illness INITIAL COMMENTS - FREE TEXT/NARRATIVE: This is a 54-year-old female. She comes tonight because she is having episodes of poor balance and room spinning or jittering. She apparently was having a difficult time tonight and she got up to go to the bathroom and when she turned around to flush the commode the room became jittery again and she fell into the bathtub. She is fallen multiple times at home over the last couple of days. She complains of right rib pain where she hit the tub she also has hit her head several times as well. She had some blurry vision tonight and she has been having episodes of dizziness and visual issues. She has never had an MRI of her head. She describes it as the room being jittery or spinning and she feels like she spinning at the same time so she can keep her balance. In the past she has been on code own and morphine for a right knee that was replaced and she priscila cribes it as "botched" so she has chronic pain but she says she is not on the oxycodone or morphine now. She does take Adderall for ADHD. She is on Valium for anxiety and panic attacks. She takes gabapentin and she also takes thyroid. She is on several other medications he has been in here for a bipolar illness in the past and suicidal thoughts. She denies any suicidal thoughts tonight. Talk to her she keeps her eyes closed and she has slightly slurred speech but she is clearly audible and understandable. She seems to move all 4 extremities equally with no obvious neurological deficits. Right Chest Pain Score (Numeric/FACES): 7 - Related Data Allergies Allergy/AdvReac Type Severity Reaction Status Date / Time ibuprofen Allergy Severe Cannot Verified 11/23/19 18:31 Remember Home Meds: Home Meds Amphetamine Salts. 15 mg PO DAILY 11/23/19 [History] Cyclobenzaprine [Flexeril] 5 mg PO TID PRN 11/23/19 [History] DULoxetine [Cymbalta] 60 mg PO DAILY 11/23/19 [History] Estrogen,Con/M-Progest Acet [Prempro 0.3 MG-1.5 MG] 1 tab PO DAILY 11/23/19 [History] Gabapentin [Neurontin] 800 mg PO TID 11/23/19 [History] Levothyroxine 125 mcg PO DAILY 11/23/19 [History] Liraglutide [Victoza] 1.8 mg INJECT DAILY 11/23/19 [History] Lisdexamfetamine Dimesylate [Vyvanse] 10 mg PO DAILY 11/23/19 [History] Lurasidone HCl [Latuda] 160 mg PO WITHLUNCH 11/23/19 [History] Mirabegron [Myrbetriq] 50 mg PO DAILY 11/23/19 [History] OXcarbazepine [Oxcarbazepine] 600 mg PO BID 11/23/19 [History] Ondansetron [Zofran] 4 mg PO DAILY PRN 11/23/19 [History] Oxybutynin Chloride [Oxybutynin Chloride ER] 15 mg PO BEDTIME 11/23/19 [History] diazePAM [Valium] 10 mg PO DAILY 11/23/19 [History] metFORMIN [Glucophage] 850 mg PO DAILY 11/23/19 [History] traZODone HCl [Trazodone HCl] 100 mg OP BEDTIME 11/23/19 [History] Past Medical History HEENT History: Reports: Impaired Vision, Other (See Below) Other HEENT History: wears dentures wears contacts Cardiovascular History: Reports: None Respiratory History: Reports: None Genitourinary History: Reports: Urinary Incontinence [employer] History: Reports: 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 History: Reports: Concussion Psychiatric History: Reports: ADHD, Addiction, Anxiety, Bipolar, Depression, Suicidal Ideation Endocrine/Metabolic History: Reports: Hypothyroidism Hematologic History: Reports: Anemia, B12 Deficiency Immunologic History: Reports: None Oncologic (Cancer) History: Reports: None Dermatologic History: Reports: Other (See Below) Other Dermatologic History: excess skin removal surgery - Infectious Disease History Infectious Disease History: Reports: None - Past Surgical History HEENT Surgical History: Reports: Tonsillectomy GI Surgical History: Reports: Bariatric Procedure Female Surgical History: Reports: Tubal Ligation Musculoskeletal Surgical History: Reports: Knee Replacement Dermatological Surgical History: Reports: Plastic Surgical Reconstruction/Repair Social & Family History - Family History Family Medical History: Noncontributory - Tobacco Use Smoking Status *Q: Never Smoker - Caffeine Use Caffeine Use: Reports: Soda Other Caffeine Use: pills - Recreational Drug Use Recreational Drug Use: No - Living Situation & Occupation Living situation: Reports: , with Spouse, with Family (Son) Occupation: Unemployed ED ROS GENERAL - Review of Systems Review Of Systems: See Below Constitutional: Reports: Weakness. Denies: Fever, Chills HEENT: Reports: Vertigo Respiratory: Denies: Wheezing, Cough Cardiovascular: Denies: Chest Pain Endocrine: Reports: No Symptoms GI/Abdominal: Denies: Abdominal Pain, Diarrhea, Nausea, Vomiting : Reports: No Symptoms Musculoskeletal: Reports: Other (Right knee pain, right rib pain) Skin: Reports: No Symptoms 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: Reports: Dizziness, Difficulty Walking, Weakness. Denies: Headache, Paresthesia, Syncope Psychiatric: Reports: Anxiety, Confusion Hematologic/Lymphatic: Reports: No Symptoms ED EXAM, NEURO - Physical Exam Exam: See Below Exam Limited By: No Limitations General Appearance: Alert, WD/WN, No Apparent Distress, Lethargic, Thin, Other (Patient appears to be pale). No: Anxious Eye Exam: Bilateral Eye: Abnormal Pupil (Tevin's are widely dilated about 8 mm though they are reactive), PERRL, Other (When I have her at 30 degrees and turn her head with her eyes open to the right she gets vertigo or little nystagmus, when I turn her to the left it is even worse with the vertigo and the nystagmus) Ears: Normal External Exam, Normal Canal, Normal TMs Nose: Normal Inspection Throat/Mouth: Normal Inspection, Normal Lips, Normal Oropharynx, Normal Voice, No Airway Compromise, Other (Patient has no teeth, she wears dentures and they are not in tonight.) Head Exam: Normocephalic, Other (See any obvious head injuries) Neck: Supple, Non-Tender, Other (Denies any cervical tenderness on palpation. There are no carotid bruits.) Respiratory/Chest: No Respiratory Distress, Lungs Clear, Normal Breath Sounds, Other (Right lower lateral ribs are tender on palpation there is no bruising noted, I do not feel any obvious crepitus on palpation but she is tender. Her left chest wall and ribs are nontender on palpation.) Cardiovascular: Regular Rate, Rhythm, No Murmur GI/Abdominal: Soft, Non-Tender, Other (Bowel sounds are decreased but they are present) 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: Alert, No Motor/Sensory Deficits, Oriented x 3, Abnormal Finger to Nose, Difficulty Walking, Other (She is extremely weak all over. When she closes her eyes and tries to do the [id number] she misses her nose every time and basically touches her chin or her mouth.). No: Babinski, Tremor Back Exam: Normal Inspection, Other (No bruising or abrasions of her back are noted) Extremities: Normal Inspection, Normal Range of Motion, Other (I do not see any obvious bruising on the elbows or the knees where she might of fallen multiple times) Psychiatric: Flat Affect. No: Tearful Skin Exam: Warm, Dry, Pallor Comments: GCS equals 15 EKG INTERPRETATION EKG Date: 11/23/19 Time: 20:15 EKG Interpretation Comments: EKG shows a normal sinus rhythm rate of 76. There is no acute ST or T wave changes. There is no ischemia noted. Course - Vital Signs Last Recorded V/S: Last Vital Signs Temp 99.0 F 11/23/19 18:30 Pulse 80 11/23/19 18:30 Resp 20 11/23/19 18:30 BP 118/84 11/23/19 18:30 Pulse Ox 99 11/23/19 18:30 Orthostatic Blood Pressure [ 111/85 Standing] Orthostatic Blood Pressure [ 124/84 Sitting] Orthostatic Blood Pressure [ 133/78 Supine] - Orders/Labs/Meds Orders: Active Orders 24 hr Category Date Time Status EKG 12 Lead [EKG Documentation Completion] [RC] STAT Care 11/23/19 20:10 Active Orthostatic Vital Signs [RC] ASDIRECTED Care 11/23/19 21:02 Active Peripheral IV Care [RC] . DIRECTED Care 11/23/19 18:52 Active 25-HYDROXYVITAMIN D LCMS D2D3 [REF] Stat Lab 11/23/19 19:25 Received Sodium Chloride 0.9% [Saline Flush] Med 11/23/19 18:51 Active 10 ml FLUSH ASDIRECTED PRN Peripheral IV Insertion Adult [OM.PC] Routine Oth 11/23/19 18:51 Ordered Medication Orders Gabapentin (Neurontin) 800 mg PO ONETIME ONE Stop: 11/23/19 22:49 Lactated Ringer's (Ringers, Lactated) 1,000 mls @ 150 mls/hr IV ASDIRECTED PRAVIN Oxybutynin Chloride (Oxybutynin) 15 mg PO ONETIME ONE Stop: 11/23/19 22:49 Sodium Chloride (Saline Flush) 10 ml FLUSH ASDIRECTED PRN PRN Reason: Keep Vein Open Last Admin: 11/23/19 19:28 Dose: 10 ml Documented by: TIAGO Trazodone HCl (Trazodone) 100 mg PO ONETIME ONE Stop: 11/23/19 22:50 Labs: Laboratory Tests 11/23/19 11/23/19 11/23/19 Range/Units 18:58 18:58 19:25 WBC 5.83 (3.98-10.04) K/mm3 RBC 3.96 L (3.98-5.22) M/mm3 Hgb 11.9 (11.2-15.7) gm/dl Hct 36.4 (34.1-44.9) % MCV 91.9 (79.4-94.8) fl MCH 30.1 (25.6-32.2) pg MCHC 32.7 (32.2-35.5) g/dl RDW Std Deviation 44.0 (36.4-46.3) fL Plt Count 265 (182-369) K/mm3 MPV 9.9 (9.4-12.3) fl Neut % (Auto) 57.7 (34.0-71.1) % Lymph % (Auto) 33.4 (19.3-51.7) % Guthrie % (Auto) 6.7 (4.7-12.5) % Eos % (Auto) 1.7 (0.7-5.8) Baso % (Auto) 0.5 (0.1-1.2) % Neut # (Auto) 3.36 (1.56-6.13) K/mm3 Lymph # (Auto) 1.95 (1.18-3.74) K/mm3 Guthrie # (Auto) 0.39 H (0.24-0.36) K/mm3 Eos # (Auto) 0.10 (0.04-0.36) K/mm3 Baso # (Auto) 0.03 (0.01-0.08) K/mm3 Manual Slide Review Normal smear Sodium (136-145) mEq/L Potassium (3.5-5.1) mEq/L Chloride (98-107) mEq/L Carbon Dioxide (21-32) mEq/L Anion Gap (5-15) BUN (7-18) mg/dL Creatinine (0.55-1.02) mg/dL Est Cr Clr Drug Dosing mL/min Estimated GFR (MDRD) (>60) mL/min BUN/Creatinine Ratio (14-18) Glucose (74-106) mg/dL Calcium (8.5-10.1) mg/dL Magnesium (1.8-2.4) mg/dl Total Bilirubin (0.2-1.0) mg/dL AST (15-37) U/L ALT (14-59) U/L Alkaline Phosphatase (46-116) U/L Total Protein (6.4-8.2) g/dl Albumin (3.4-5.0) g/dl Globulin gm/dL Albumin/Globulin Ratio (1-2) Vitamin B12 (193-986) pg/ml Folate (8.6-58.9) ng/mL TSH 3rd Generation (0.358-3.74) uIU/mL Urine Color Yellow (Yellow) Urine Appearance Slt cloudy H (Clear) Urine pH 6.0 (5.0-8.0) Ur Specific [place] > or = 1.030 (1.005-1.030) Urine Protein Negative (Negative) Urine Glucose (UA) Negative (Negative) Urine Ketones Negative (Negative) Urine Occult Blood Negative (Negative) Urine Nitrite Negative (Negative) Urine Bilirubin 1+ H (Negative) Urine Urobilinogen 0.2 (0.2-1.0) Ur Leukocyte Esterase Trace H (Negative) Urine RBC 0-5 (0-5) /hpf Urine WBC 5-10 H (0-5) /hpf Ur Squamous Epith Cells 10-20 H (0-5) /hpf Urine Bacteria Moderate H (FEW) /hpf Urine Mucus Few (FEW) /hpf Urine Opiates Screen Negative (KJYTJE=772) Ur Buprenorphine Scrn Negative (CUTOFF=10) Ur Oxycodone Screen Negative (MJJ2DZ=987) Urine Methadone Screen Negative (GMFLDG=749) Ur Propoxyphene Screen Negative (TMLTUV=821) Ur Barbiturates Screen Negative (FHECOV=951) Ur Tricyclics Screen Presumptive positive H (TSIQJK=913) Ur Phencyclidine Scrn Negative (CUTOFF=25) Ur Amphetamine Screen Presumptive positive H (BVSIJL=601) U Methamphetamines Scrn Negative (EHPEUY=208) U Benzodiazepines Scrn Presumptive positive H (RBGZXE=992) U Cocaine Metab Screen Negative (TQIMTE=232) U Marijuana (THC) Screen Negative (CUTOFF=50) Ethyl Alcohol (0.00) gm% COVID-19 (ALISON) (NEGATIVE) 11/23/19 11/23/19 11/23/19 Range/Units 19:25 19:25 19:25 WBC (3.98-10.04) K/mm3 RBC (3.98-5.22) M/mm3 Hgb (11.2-15.7) gm/dl Hct (34.1-44.9) % MCV (79.4-94.8) fl MCH (25.6-32.2) pg MCHC (32.2-35.5) g/dl RDW Std Deviation (36.4-46.3) fL Plt Count (182-369) K/mm3 MPV (9.4-12.3) fl Neut % (Auto) (34.0-71.1) % Lymph % (Auto) (19.3-51.7) % Guthrie % (Auto) (4.7-12.5) % Eos % (Auto) (0.7-5.8) Baso % (Auto) (0.1-1.2) % Neut # (Auto) (1.56-6.13) K/mm3 Lymph # (Auto) (1.18-3.74) K/mm3 Guthrie # (Auto) (0.24-0.36) K/mm3 Eos # (Auto) (0.04-0.36) K/mm3 Baso # (Auto) (0.01-0.08) K/mm3 Manual Slide Review Sodium 137 (136-145) mEq/L Potassium 3.8 (3.5-5.1) mEq/L Chloride 100 (98-107) mEq/L Carbon Dioxide 29 (21-32) mEq/L Anion Gap 11.8 (5-15) BUN 17 (7-18) mg/dL Creatinine 0.9 (0.55-1.02) mg/dL Est Cr Clr Drug Dosing 70.40 mL/min Estimated GFR (MDRD) > 60 (>60) mL/min BUN/Creatinine Ratio 18.9 H (14-18) Glucose 85 (74-106) mg/dL Calcium 9.1 (8.5-10.1) mg/dL Magnesium 1.5 L (1.8-2.4) mg/dl Total Bilirubin 0.4 (0.2-1.0) mg/dL AST 17 (15-37) U/L ALT 20 (14-59) U/L Alkaline Phosphatase 51 (46-116) U/L Total Protein 6.4 (6.4-8.2) g/dl Albumin 3.5 (3.4-5.0) g/dl Globulin 2.9 gm/dL Albumin/Globulin Ratio 1.2 (1-2) Vitamin B12 486 (193-986) pg/ml Folate 5.7 L (8.6-58.9) ng/mL TSH 3rd Generation 0.563 (0.358-3.74) uIU/mL Urine Color (Yellow) Urine Appearance (Clear) Urine pH (5.0-8.0) Ur Specific [place] (1.005-1.030) Urine Protein (Negative) Urine Glucose (UA) (Negative) Urine Ketones (Negative) Urine Occult Blood (Negative) Urine Nitrite (Negative) Urine Bilirubin (Negative) Urine Urobilinogen (0.2-1.0) Ur Leukocyte Esterase (Negative) Urine RBC (0-5) /hpf Urine WBC (0-5) /hpf Ur Squamous Epith Cells (0-5) /hpf Urine Bacteria (FEW) /hpf Urine Mucus (FEW) /hpf Urine Opiates Screen (HXESWR=617) Ur Buprenorphine Scrn (CUTOFF=10) Ur Oxycodone Screen (JIX9DO=097) Urine Methadone Screen (SLBXQH=800) Ur Propoxyphene Screen (XVTGNU=465) Ur Barbiturates Screen (JEMEXQ=247) Ur Tricyclics Screen (EWVKZZ=865) Ur Phencyclidine Scrn (CUTOFF=25) Ur Amphetamine Screen (FEFVCH=548) U Methamphetamines Scrn (HIMTRR=179) U Benzodiazepines Scrn (TSVEBF=482) U Cocaine Metab Screen (PNWUEF=310) U Marijuana (THC) Screen (CUTOFF=50) Ethyl Alcohol 0.00 (0.00) gm% COVID-19 (ALISON) (NEGATIVE) 11/23/19 Range/Units 21:07 WBC (3.98-10.04) K/mm3 RBC (3.98-5.22) M/mm3 Hgb (11.2-15.7) gm/dl Hct (34.1-44.9) % MCV (79.4-94.8) fl MCH (25.6-32.2) pg MCHC (32.2-35.5) g/dl RDW Std Deviation (36.4-46.3) fL Plt Count (182-369) K/mm3 MPV (9.4-12.3) fl Neut % (Auto) (34.0-71.1) % Lymph % (Auto) (19.3-51.7) % Guthrie % (Auto) (4.7-12.5) % Eos % (Auto) (0.7-5.8) Baso % (Auto) (0.1-1.2) % Neut # (Auto) (1.56-6.13) K/mm3 Lymph # (Auto) (1.18-3.74) K/mm3 Guthrie # (Auto) (0.24-0.36) K/mm3 Eos # (Auto) (0.04-0.36) K/mm3 Baso # (Auto) (0.01-0.08) K/mm3 Manual Slide Review Sodium (136-145) mEq/L Potassium (3.5-5.1) mEq/L Chloride (98-107) mEq/L Carbon Dioxide (21-32) mEq/L Anion Gap (5-15) BUN (7-18) mg/dL Creatinine (0.55-1.02) mg/dL Est Cr Clr Drug Dosing mL/min Estimated GFR (MDRD) (>60) mL/min BUN/Creatinine Ratio (14-18) Glucose (74-106) mg/dL Calcium (8.5-10.1) mg/dL Magnesium (1.8-2.4) mg/dl Total Bilirubin (0.2-1.0) mg/dL AST (15-37) U/L ALT (14-59) U/L Alkaline Phosphatase (46-116) U/L Total Protein (6.4-8.2) g/dl Albumin (3.4-5.0) g/dl Globulin gm/dL Albumin/Globulin Ratio (1-2) Vitamin B12 (193-986) pg/ml Folate (8.6-58.9) ng/mL TSH 3rd Generation (0.358-3.74) uIU/mL Urine Color (Yellow) Urine Appearance (Clear) Urine pH (5.0-8.0) Ur Specific [place] (1.005-1.030) Urine Protein (Negative) Urine Glucose (UA) (Negative) Urine Ketones (Negative) Urine Occult Blood (Negative) Urine Nitrite (Negative) Urine Bilirubin (Negative) Urine Urobilinogen (0.2-1.0) Ur Leukocyte Esterase (Negative) Urine RBC (0-5) /hpf Urine WBC (0-5) /hpf Ur Squamous Epith Cells (0-5) /hpf Urine Bacteria (FEW) /hpf Urine Mucus (FEW) /hpf Urine Opiates Screen (FPRMZV=255) Ur Buprenorphine Scrn (CUTOFF=10) Ur Oxycodone Screen (PQM0CT=344) Urine Methadone Screen (XGIJMS=952) Ur Propoxyphene Screen (GDJZFM=519) Ur Barbiturates Screen (EKCCEU=900) Ur Tricyclics Screen (DOJNNB=167) Ur Phencyclidine Scrn (CUTOFF=25) Ur Amphetamine Screen (FRXDJH=496) U Methamphetamines Scrn (JWRSDR=510) U Benzodiazepines Scrn (HPOHMO=469) U Cocaine Metab Screen (AGJIUS=572) U Marijuana (THC) Screen (CUTOFF=50) Ethyl Alcohol (0.00) gm% COVID-19 (ALISON) Negative (NEGATIVE) Meds: Medications Generic Name Dose Route Start Last Admin Trade Name Freq PRN Reason Stop Dose Admin Gabapentin 800 mg 11/23/19 22:48 Neurontin PO 11/23/19 22:49 ONETIME ONE Lactated Ringer's 1,000 mls @ 150 mls/hr 11/23/19 23:00 Ringers, Lactated IV ASDIRECTED PRAVIN Oxybutynin Chloride 15 mg 11/23/19 22:48 Oxybutynin PO 11/23/19 22:49 ONETIME ONE Sodium Chloride 10 ml 11/23/19 18:51 11/23/19 19:28 Saline Flush FLUSH 10 ml ASDIRECTED PRN Administration Keep Vein Open Trazodone HCl 100 mg 11/23/19 22:49 Trazodone PO 11/23/19 22:50 ONETIME ONE Discontinued Medications Generic Name Dose Route Start Last Admin Trade Name Yecenia PRN Reason Stop Dose Admin Lorazepam 1 mg 11/23/19 21:47 11/23/19 21:52 Ativan IVPUSH 11/23/19 21:48 1 mg ONETIME ONE Administration - Radiology Interpretation Free Text/Narrative:: Chest x-ray shows a slight lucency in the left lateral chest thought to be may b e a small pneumothorax though she is having no pain on the left chest. It is suggested we get a CT scan of the chest which we will. CT scan of her head does not show any acute intracranial abnormalities. CT scan of the chest reveals no pneumothorax. She does have a fracture of the seventh and eighth rib on the right side. - Re-Assessments/Exams Free Text/Narrative Re-Assessment/Exam: 11/23/19 21:04 The patient regarding her test results. Her orthostatic vital signs did show a slight drop in her blood pressure and her heart rate goes from 79-94 from lying down to standing. She does not appear to be dizzy however unless she moved her head suddenly. Indicated to the patient that multiple of her medications cause dizziness and 1 of them actually causes nystagmus. I am concerned that her medicines are interacting with her abnormally. To Dr. Lux and she will place the patient in observation for further evaluation and treatment. 11/23/19 21:49 Just prior to being moved to the observation the patient began to hold her breath and began to scratch on the bed with her hands. She would not look at the nurse. I go into the room and I start talking to her she will look at me. She is having a panic attack. She says she does not want to be in the hospital and that she is not a pill popper. I explained to her that we thought she was h aving adverse reaction to her medication causing her dizziness and that we were putting her in the hospital to check her medications and trying to figure out why she is dizzy and falling down. I did give her 1 mg Ativan IV and she seemed to settle down some. 11/23/19 23:16 indicates that they just recently increased her Trileptal instead of 2 tablets of 2-1/2 tablets a day. He is not certain whether it was due to the bipolar illness or exactly why the increased it because he was not home at the time. Is slightly upset because the nurses and MedSurg would not talk to him regarding his 's condition. So [facility] and I explained to him what was going on and we thought possibly she was having a medication reaction causing her dizziness and nystagmus. He is very familiar with her medications because he sets them aside every day for her. He is going to go home and get her cell phone and industrial nurse so that she can keep him informed as what is going on. I told him that she was in observation and that the hospitalist would give him a call in the morning when she saw her. His cell phone is [phone] and his first name is Guzman. Departure - Departure Time of Disposition: 21:05 Disposition: Refer to Observation Condition: Fair Clinical Impression: Nystagmus, Dizziness, Multiple falls, Multiple fractures of ribs, right side, initial encounter for closed fracture, Anxiety reaction - Discharge Information Sepsis Event Note (ED) - Evaluation Sepsis Screening Result: No Definite Risk - Focused Exam Vital Signs: Vital Signs Temp Pulse Resp BP Pulse Ox 11/23/19 18:30 99.0 F 80 20 118/84 99 ED Communication - ED Communication Date/Time Date: 11/23/19 Time Called: 21:07 - Discussed Case With (1) Discussed Case With (1): Admitting Provider Person/s Notified (1): Greer Pinto (She agrees to put the patient in observation for further evaluation and treatment.) - My Orders Last 24 Hours: My Active Orders 11/23/19 19:25 25-HYDROXYVITAMIN D LCMS D2D3 [REF] Stat 11/23/19 20:10 EKG 12 Lead [EKG Documentation Completion] [RC] STAT 11/23/19 21:02 Orthostatic Vital Signs [RC] ASDIRECTED - Assessment/Plan Last 24 Hours: My Active Orders 11/23/19 19:25 25-HYDROXYVITAMIN D LCMS D2D3 [REF] Stat 11/23/19 20:10 EKG 12 Lead [EKG Documentation Completion] [RC] STAT 11/23/19 21:02 Orthostatic Vital Signs [RC] ASDIRECTED
--- NOTE | 2019-11-23 20:22 | CT ---
CT chest Technique: Multiple axial sections through the chest were obtained. Intravenous contrast was not utilized. Comparison: Prior chest x-ray performed earlier on the same day (7:03 PM). Findings: No pneumothorax is seen as questioned on chest x-ray. Lungs are clear with no acute parenchymal change. No pleural effusions are seen. Mediastinum and hilar regions show no adenopathy. Aorta shows no aneurysm. No pericardial thickening is seen. Visualized upper abdominal structures shows nothing acute. Surgical anastomotic sutures are seen within the upper abdomen presumably due to prior stomach surgery. Bone window settings were reviewed which shows slight degenerative change within the spine. Fracture is noted within the seventh rib which appears to be acute. Possible fracture within the right eighth rib which is also likely acute. 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 Impression: 1. 2 nondisplaced acute fractures within the right ribs. 2. No pneumothorax is seen. 3. Ununited old fracture within the right ninth rib. 4. No acute parenchymal process is seen within the lungs. No mediastinal abnormality is seen. Diagnostic code #3 This report was dictated in MDT
[2019-11-23] MEDS ORDERED: LORazepam 2 MG/ML SDV IVPUSH ONE (21:47)
[2019-11-23] MEDS ORDERED: Gabapentin 600 MG Tab PO ONE (22:48)
[2019-11-23] MEDS ORDERED: Gabapentin 100 MG Cap PO ONE (23:30)
[2019-11-24] MEDS ORDERED: Ondansetron 4 MG Tab.DIS PO PRN (00:01)
[2019-11-24] MEDS ORDERED: TRAZODONE PO ONE (00:01)
[2019-11-24] MEDS ORDERED: OXYBUTYNIN 15 MG PO ONE (00:03)
[2019-11-24] MEDS: Lactated Ringers 1,000 ML IV SCH ×4 (00:13→21:22)
[2019-11-24] MEDS ORDERED: GABAPENTIN 800 MG PO ONE ×2 (00:15)
[2019-11-24] MEDS ORDERED: Ondansetron 4 MG/2 ML SDV IVPUSH PRN (00:24)
[2019-11-24] MEDS ORDERED: Acetaminophen/Codeine 300-30 MG Tab PO PRN (00:55)
[2019-11-24] MEDS: Ketorolac 30 MG/ML SDV IVPUSH PRN ×2 (01:12→09:47)
--- NOTE | 2019-11-24 10:02 | PCM.HP.2 ---
H&P History of Present Illness - General Date of Service: 11/24/19 Admit Problem/Dx: Admission Diagnosis/Problem Admission Diagnosis/Problem Vertigo - History of Present Illness Initial Comments - Free Text/Narative: This is a 54-year-old female with extensive psychiatric past medical history who comes to the emergency department after 2 falls. As per patient he has been dizzy for several months, however this has been significantly worse in the past 3 days. She describes 2 kinds of dizziness 1 as standing up and feeling her legs weak and the second 1 as if the ground goes out from under her. The second 1 happened a couple of days ago and at the same time she started having a panic attack she took to 10 mg Valium's and fell in the bathroom into the bathtub and hurt her chest. She had ordered some food and wanted to go pick it up from the front floor, she managed to get up walk towards the front door but fell on the coffee table again Yesterday had a brisk same episode where she started feeling weak accompanied with blurry vision to the point that it hurt her head. She went to bed and waited a couple of hours went to use the restroom and after voiding urine stood up and fell in the tub again for which she decided to come to the emergency department for evaluation Right Chest Pain Score (Numeric/FACES): 7 - Related Data Allergies/Adverse Reactions: Allergies Allergy/AdvReac Type Severity Reaction Status Date / Time ibuprofen Allergy Severe Cannot Verified 11/23/19 23:22 Remember Home Medications: Home Meds Amphetamine Salts. 15 mg PO DAILY 11/23/19 [History] Cyclobenzaprine [Flexeril] 5 mg PO TID PRN 11/23/19 [History] DULoxetine [Cymbalta] 60 mg PO DAILY 11/23/19 [History] Estrogen,Con/M-Progest Acet [Prempro 0.3 MG-1.5 MG] 1 tab PO DAILY 11/23/19 [History] Gabapentin [Neurontin] 800 mg PO TID 11/23/19 [History] Levothyroxine 125 mcg PO DAILY 11/23/19 [History] Liraglutide [Victoza] 1.8 mg INJECT DAILY 11/23/19 [History] Lisdexamfetamine Dimesylate [Vyvanse] 10 mg PO DAILY 11/23/19 [History] Lurasidone HCl [Latuda] 160 mg PO WITHLUNCH 11/23/19 [History] Mirabegron [Myrbetriq] 50 mg PO DAILY 11/23/19 [History] OXcarbazepine [Oxcarbazepine] 600 mg PO BID 11/23/19 [History] Ondansetron [Zofran] 4 mg PO DAILY PRN 11/23/19 [History] Oxybutynin Chloride [Oxybutynin Chloride ER] 15 mg PO BEDTIME 11/23/19 [History] diazePAM [Valium] 10 mg PO DAILY 11/23/19 [History] metFORMIN [Glucophage] 850 mg PO DAILY 11/23/19 [History] traZODone HCl [Trazodone HCl] 100 mg OP BEDTIME 11/23/19 [History] Past Medical History HEENT History: Reports: Impaired Vision, Other (See Below) Other HEENT History: wears dentures wears contacts Cardiovascular History: Reports: None Respiratory History: Reports: None Genitourinary History: Reports: Urinary Incontinence [employer] History: Reports: Other OB/BYN History: vaginal Musculoskeletal History: Reports: Osteoarthritis 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 History: Reports: Concussion Psychiatric History: Reports: ADHD, Addiction, Anxiety, Bipolar, Depression, Suicidal Ideation Endocrine/Metabolic History: Reports: Hypothyroidism Hematologic History: Reports: Anemia, B12 Deficiency Immunologic History: Reports: None Oncologic (Cancer) History: Reports: None Dermatologic History: Reports: Other (See Below) Other Dermatologic History: excess skin removal surgery - Infectious Disease History Infectious Disease History: Reports: None Other Infectious Disease History: pt states she doesn't know if she has had any of these - Past Surgical History HEENT Surgical History: Reports: Tonsillectomy GI Surgical History: Reports: Bariatric Procedure Female Surgical History: Reports: Tubal Ligation Musculoskeletal Surgical History: Reports: Knee Replacement Dermatological Surgical History: Reports: Plastic Surgical Reconstruction/Repair Social & Family History - Family History Family Medical History: Noncontributory - Tobacco Use Smoking Status *Q: Never Smoker Second Hand Smoke Exposure: No - Caffeine Use Caffeine Use: Reports: Soda Other Caffeine Use: pills - Recreational Drug Use Recreational Drug Use: No - Living Situation & Occupation Living situation: Reports: , with Spouse, with Family (Son) Occupation: Unemployed H&P Review of Systems - Review of Systems: Review Of Systems: See Below General: Reports: Weakness, Weight Loss. Denies: Fever, Chills, Malaise, Fatigue, Night Sweats, Diaphoresis, Decreased Appetite HEENT: Reports: Vertigo. Denies: Post Nasal Drip, Sinus Congestion, Sore Throat, Visual Changes Pulmonary: Denies: Shortness of Breath, Wheezing, Pleuritic Chest Pain, Cough, Sputum, Hemoptysis Cardiovascular: Reports: Lightheadedness, Syncope. Denies: Chest Pain, Palpitations, Dyspnea on Exertion, Orthopnea, PND, Edema, Claudication, Blood Pressure Problem Gastrointestinal: Denies: Abdominal Pain, Anorexia, Black Stool, Bloody Stool, Constipation, Diarrhea, Decreased Appetite, Difficulty Swallowing, Distension, Flatus, Hematemesis, Hematochezia, Melena, Mucous in Stool, Nausea, Vomiting Genitourinary: Denies: Dysuria, Frequency, Burning, Pain, Urgency, Incontinence, Hematuria Musculoskeletal: Denies: Joint Pain, Joint Swelling, Muscle Pain, Muscle Stiffness Skin: Denies: Cyanosis, Jaundice, Mottled, Pallor, Diaphoresis, Dryness Psychiatric: Denies: Depression, Mood Lability, Anxiety, Agitation 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: Reports: Dizziness. Denies: Headache, Numbness, Paresthesia Exam - Exam Exam: See Below - Vital Signs Vital Signs: Last Vital Signs Temp 98.2 F 11/24/19 06:20 Pulse 77 11/24/19 06:20 Resp 16 11/24/19 06:20 BP 102/64 11/24/19 07:30 Pulse Ox 95 11/24/19 06:20 Weight: 63.503 kg - Exam General: Alert, Oriented, Cooperative. No: Mild Distress, Moderate Distress, Severe Distress HEENT: Conjunctiva Clear, EACs Clear, EOMI, Mucosa Moist & [place] Neck: Supple, Trachea Midline, +2 Carotid Pulse wo Bruit, Full Range of Motion. No: Lymphadenopathy Lungs: Clear to Auscultation, Normal Respiratory Effort. No: Decreased Breath Sounds, Crackles, Rales, Rhonchi, Rub, Stridor, Wheezing Cardiovascular: Regular Rate, Regular Rhythm. No: Systolic Murmur, Diastolic Murmur, Rubs, Gallop/S3, Gallop/S4 GI/Abdominal Exam: Normal Bowel Sounds, Soft, Non-Tender, No Organomegaly. No: Distended, Guarding, Rigid, Rebound, Tender Back Exam: Normal Inspection, Full Range of Motion. No: CVA Tenderness (L), CVA Tenderness (R), Muscle Spasm, Paraspinal Tenderness, Vertebral Tenderness Extremities: Normal Inspection, Normal Range of Motion, Non-Tender, No Pedal Edema, Normal Capillary Refill Peripheral Pulses: 2+: Radial (L), Radial (R) Skin: Dry, Intact - Patient Data Result Diagrams: 11/23/19 19:25 11/23/19 19:25 Sepsis Event Note - Evaluation Sepsis Screening Result: No Definite Risk - Problem List (1) Syncope and collapse SNOMED Code(s): 144114977 ICD Code: R55 - SYNCOPE AND COLLAPSE Status: Acute Current Visit: Yes (2) ADHD SNOMED Code(s): 438671053 ICD Code: F90.9 - ATTENTION-DEFICIT HYPERACTIVITY DISORDER, UNSPECIFIED TYPE Status: Acute Current Visit: Yes (3) Anxiety SNOMED Code(s): 26360063 ICD Code: F41.9 - ANXIETY DISORDER, UNSPECIFIED Status: Acute Current Visit: Yes (4) Bipolar disorder SNOMED Code(s): 64953626 ICD Code: F31.9 - BIPOLAR DISORDER, UNSPECIFIED Status: Acute Current Visit: Yes (5) Major depressive disorder SNOMED Code(s): 118722090 ICD Code: F32.9 - MAJOR DEPRESSIVE DISORDER, SINGLE EPISODE, UNSPECIFIED Status: Acute Current Visit: Yes (6) Hypothyroidism SNOMED Code(s): 15091485 ICD Code: E03.9 - HYPOTHYROIDISM, UNSPECIFIED Status: Acute Current Visit: Yes (7) Abnormal weight loss SNOMED Code(s): 174617870 ICD Code: R63.4 - ABNORMAL WEIGHT LOSS Status: Acute Current Visit: Yes (8) Polypharmacy SNOMED Code(s): 046224431 ICD Code: Z79.899 - OTHER LONGTERM (CURRENT) DRUG THERAPY Status: Acute Current Visit: Yes (9) Ribs, multiple fractures SNOMED Code(s): 1276034 ICD Code: S22.49XA - MULTIPLE FRACTURES OF RIBS, UNSP SIDE, INIT FOR CLOS FX Status: Acute Current Visit: Yes (10) Dizziness SNOMED Code(s): 654372032, 903112799 ICD Code: R42 - DIZZINESS AND GIDDINESS Status: Acute Current Visit: Yes (11) Fall SNOMED Code(s): 2558279, 926195179 ICD Code: W19.XXXA - UNSPECIFIED FALL, INITIAL ENCOUNTER Status: Acute C urrent Visit: No Qualifiers: Encounter type: initial encounter Qualified Code(s): W19.XXXA - Unspecified fall, initial encounter Problem List Initiated/Reviewed/Updated: Yes Assessment/Plan Comment:: ASSESSMENT Comes in after 3 falls preceded by dizziness/feeling unsteady Has had intermittent dizziness for a while now PCP did a Holter monitor 6 months ago reported normal History of a gastric bypass in 2007 Weight went down from 256 235 Has had significantly decreased appetite and postprandial vomiting, likely gastroparesis Multiple central acting medications Saw her PCP on and her psychiatrist on Tuesday who added Trileptal in the evenings On Adderall, Flexeril, duloxetine, gabapentin, Vyvanse, Latuda, oxcarbazepine, diazepam and trazodone Vital signs on admission Blood pressure 118/84, heart rate 80, temp 99, pulse ox 99% Orthostatic in the emergency department All labs within normal limits except for magnesium of 1.5 Urine drug screen positive for tricyclics, amphetamines and benzodiazepines Labs ordered for today with a folate level of 5.7 B12 normal PLAN Fall/dizziness Ribs, multiple fractures Syncope and collapse ADHD/Anxiety/Bipolar disorder Major depressive disorder Polypharmacy Evaluate current med list and start to taper down Hypothyroidism Repeat TSH and T4 Hold levothyroxine Abnormal weight loss Dietary consult Prealbumin level Rest of vitamin levels and iron panel CODE STATUS: FULL CODE PROPHYLAXIS: DVTambulation and compression stockings GInot indicated DISPOSITION: Patient will remain admitted to medical floor pending repeat blood work, will taper down and discontinue as much medications as possible. - Mortality Measure Prognosis:: Good
[2019-11-24] MEDS ORDERED: OXcarbazepine 300 MG Tab PO SCH (20:45)
[2019-11-24] MEDS ORDERED: Oxybutynin 5 MG Tab.ER PO SCH (21:00)
[2019-11-24] MEDS ORDERED: DULOXETINE 60 MG PO SCH (22:30)
[2019-11-24] MEDS ORDERED: DULoxetine 30 MG Cap PO SCH (22:30)
[2019-11-24] MEDS ORDERED: TRAZODONE HCL 100 MG PO SCH (22:30)
[2019-11-25] MEDS: Ketorolac 30 MG/ML SDV IVPUSH PRN (03:55)
[2019-11-25] MEDS: Lactated Ringers 1,000 ML IV SCH (03:56)
[2019-11-25] MEDS ORDERED: OXCARBAZEPINE 600 MG PO SCH (06:00)
[2019-11-25] MEDS ORDERED: MIRABEGRON 50 MG PO SCH (09:00)
[2019-11-25] MEDS ORDERED: Diazepam 5 MG Tab PO SCH (09:00)
[2019-11-25] MEDS ORDERED: LISDEXAMFETAMINE DIMESYLATE PO SCH (09:00)
[2019-11-25] MEDS ORDERED: Magnesium Sulfate/Water 4 GM in Premix Bag 1 BAG IV ONE (09:05)
--- NOTE | 2019-11-25 09:06 | PCM.PN ---
- General Info Date of Service: 11/25/19 - Patient Data Vitals - Most Recent: Last Vital Signs Temp 98.2 F 11/25/19 03:47 Pulse 72 11/25/19 03:47 Resp 16 11/25/19 03:47 BP 132/83 11/25/19 03:59 Pulse Ox 98 11/25/19 03:47 Orthostatic Blood Pressure [ 111/85 Standing] Orthostatic Blood Pressure [ 124/84 Sitting] Orthostatic Blood Pressure [ 133/78 Supine] Weight - Most Recent: 67.132 kg I&O - Last 24 Hours: Intake & Output 11/24/19 11/25/19 11/25/19 22:59 06:59 14:59 Intake Total 1889 2041 Output Total 650 1150 Balance 1239 891 Med Orders - Current: Current Medications Acetaminophen/Codeine Phosphate (Tylenol With Codeine No.3 300mg/30mg) 1 tab PO Q4H PRN PRN Reason: Pain Last Admin: 11/24/19 01:13 Dose: 1 tab Documented by: Diazepam (Valium.) 5 mg PO DAILY PRAVIN Folic Acid (Folic Acid) 1 mg PO DAILY PRAVIN Lactated Ringer's (Ringers, Lactated) 1,000 mls @ 150 mls/hr IV ASDIRECTED PRAVIN Last Admin: 11/25/19 03:56 Dose: 150 mls/hr Documented by: Magnesium Sulfate 4 gm/ Premix 50 mls @ 12.5 mls/hr IV ONETIME ONE Stop: 11/25/19 13:04 Ketorolac Tromethamine (Toradol) 30 mg IVPUSH Q6H PRN PRN Reason: Pain Last Admin: 11/25/19 03:55 Dose: 30 mg Documented by: Non-Formulary Medication (Lisdexamfetamine Dimesylate [Vyvanse]) 0 mg PO DAILY [facility] Non-Formulary Medication (Lurasidone Hcl [Latuda]) 80 mg PO WITHLUNCH PRAVIN Non-Formulary Medication (Mirabegron) 50 mg PO DAILY [facility] Trazodone Hcl 100mg (Pt Own) 100 mg PO BEDTIME PRAVIN Last Admin: 11/25/19 02:25 Dose: Not Given Documented by: Oxcarbazepine 600mg (TabPtom) 1 each PO BIDAC [facility] Last Admin: 11/25/19 06:51 Dose: 1 each Documented by: Duloxetine 60mg Cap (Pt Own) 60 each PO BEDTIME [facility] Last Admin: 11/24/19 23:23 Dose: 60 each Documented by: Oxybutinin Er 15mg (Tab Pt Own) 15 each PO BEDTIME [facility] Ondansetron HCl (Zofran) 4 mg IVPUSH Q8H PRN PRN Reason: Nausea/Vomiting Last Admin: 11/24/19 00:41 Dose: 4 mg Documented by: Sodium Chloride (Saline Flush) 10 ml FLUSH ASDIRECTED PRN PRN Reason: Keep Vein Open Last Admin: 11/23/19 19:28 Dose: 10 ml Documented by: Discontinued Medications Duloxetine HCl (Cymbalta) 60 mg PO BEDTIME [facility] Last Admin: 11/25/19 06:59 Dose: Not Given Documented by: Lorazepam (Ativan) 1 mg IVPUSH ONETIME ONE Stop: 11/23/19 21:48 Last Admin: 11/23/19 21:52 Dose: 1 mg Documented by: Ondansetron HCl (Zofran Odt) 8 mg PO Q8H PRN PRN Reason: Nausea/Vomiting Oxcarbazepine (Trileptal) 600 mg PO BIDAC [facility] Last Admin: 11/25/19 06:58 Dose: Not Given Documented by: Oxybutynin Chloride (Oxybutynin Er) 15 mg PO BEDTIME [facility] Last Admin: 11/25/19 06:58 Dose: Not Given Documented by: Oxybutynin Er 15 Mg (Own Med) 0 each PO ONETIME ONE Stop: 11/24/19 00:04 Last Admin: 11/24/19 00:15 Dose: 1 each Documented by: Trazodone 100mg/Tab (Own Med) 0 each PO ONETIME ONE Stop: 11/24/19 00:02 Last Admin: 11/24/19 00:15 Dose: 2 each Documented by: Gabapentin 800mg Tab (Own Med) 0 each PO ONETIME ONE Stop: 11/24/19 00:16 Gabapentin 800mg Tab (Own Med) 0 each PO ONETIME ONE Stop: 11/24/19 00:16 Last Admin: 11/24/19 00:14 Dose: 1 each Documented by: Sepsis Event Note - Evaluation Sepsis Screening Result: No Definite Risk - Focused Exam Vital Signs: Vital Signs Temp Pulse Resp BP Pulse Ox 11/25/19 03:59 132/83 11/25/19 03:47 98.2 F 72 16 98 11/25/19 00:27 98.1 F 88 16 124/94 H 99 11/24/19 21:26 98.6 F 71 16 125/77 96 - Problem List & Annotations (1) Syncope and collapse SNOMED Code(s): 514807475 Code(s): R55 - SYNCOPE AND COLLAPSE Status: Acute Current Visit: Yes (2) ADHD SNOMED Code(s): 568271180 Code(s): F90.9 - ATTENTION-DEFICIT HYPERACTIVITY DISORDER, UNSPECIFIED TYPE Status: Acute Current Visit: Yes (3) Anxiety SNOMED Code(s): 39314680 Code(s): F41.9 - ANXIETY DISORDER, UNSPECIFIED Status: Acute Current Visit: Yes (4) Bipolar disorder SNOMED Code(s): 23961081 Code(s): F31.9 - BIPOLAR DISORDER, UNSPECIFIED Status: Acute Current Visit: Yes (5) Major depressive disorder SNOMED Code(s): 198601208 Code(s): F32.9 - MAJOR DEPRESSIVE DISORDER, SINGLE EPISODE, UNSPECIFIED Status: Acute Current Visit: Yes (6) Hypothyroidism SNOMED Code(s): 56760685 Code(s): E03.9 - HYPOTHYROIDISM, UNSPECIFIED Status: Acute Current Visit: Yes (7) Abnormal weight loss SNOMED Code(s): 635414282 Code(s): R63.4 - ABNORMAL WEIGHT LOSS Status: Acute Current Visit: Yes (8) Polypharmacy SNOMED Code(s): 495347216 Code(s): Z79.899 - OTHER ASSISTED (CURRENT) DRUG THERAPY Status: Acute Current Visit: Yes (9) Ribs, multiple fractures SNOMED Code(s): 9460803 Code(s): S22.49XA - MULTIPLE FRACTURES OF RIBS, UNSP SIDE, INIT FOR CLOS FX Status: Acute Current Visit: Yes (10) Dizziness SNOMED Code(s): 773549227, 554084814 Code(s): R42 - DIZZINESS AND GIDDINESS Status: Acute Current Visit: Yes (11) Fall SNOMED Code(s): 5154122, 210779552 Code(s): W19.XXXA - UNSPECIFIED FALL, INITIAL ENCOUNTER Status: Acute Current Visit: No Qualifiers: Encounter type: initial encounter Qualified Code(s): W19.XXXA - Unspecified fall, initial encounter - My Orders Last 24 Hours: My Active Orders 11/24/19 Lunch ADA Diabetic [[employer] Diet] [DIET] 11/24/19 22:30 Non-Formulary Medication [NF Drug] 60 each PO BEDTIME traZODone HCl 100 mg PO BEDTIME 11/25/19 06:00 Non-Formulary Medication [NF Drug] 1 each PO BIDAC 11/25/19 09:00 Lisdexamfetamine Dimesylate [Vyvanse] 0 mg PO DAILY Mirabegron 50 mg PO DAILY diazePAM [Valium.] 5 mg PO DAILY 11/25/19 09:05 Magnesium Sulfate/Water [Magnesium Sulfate in Water Premix] 4 gm Premix Bag 1 bag IV ONETIME 11/25/19 09:15 Folic Acid 1 mg PO DAILY 11/25/19 11:00 Lurasidone HCl [Latuda] 80 mg PO WITHLUNCH 11/25/19 21:00 Non-Formulary Medication [NF Drug] 15 each PO BEDTIME - Plan Plan:: ASSESSMENT Comes in after 3 falls preceded by dizziness/feeling unsteady Has had intermittent dizziness for a while now PCP did a Holter monitor 6 months ago reported normal History of a gastric bypass in 2007 Weight went down from 256 235 Has had significantly decreased appetite and postprandial vomiting, likely gastroparesis Multiple central acting medications Saw her PCP on and her psychiatrist on Tuesday who added Trileptal in the evenings On Adderall, Flexeril, duloxetine, gabapentin, Vyvanse, Latuda, oxcarbazepine, diazepam and trazodone Vital signs on admission Blood pressure 118/84, heart rate 80, temp 99, pulse ox 99% Orthostatic in the emergency department All labs within normal limits except for magnesium of 1.5 Urine drug screen positive for tricyclics, amphetamines and benzodiazepines Labs ordered for today with a folate level of 5.7 B12 normal PLAN Fall/dizziness Ribs, multiple fractures Syncope and collapse ADHD/Anxiety/Bipolar disorder Major depressive disorder Polypharmacy Evaluate current med list and start to taper down Hypothyroidism Repeat TSH and T4 Hold levothyroxine Abnormal weight loss Dietary consult Prealbumin level Rest of vitamin levels and iron panel CODE STATUS: FULL CODE PROPHYLAXIS: DVTambulation and compression stockings GInot indicated DISPOSITION: Patient will remain admitted to medical floor pending repeat blood work, will taper down and discontinue as much medications as possible.
[2019-11-25] MEDS ORDERED: Folic Acid 1 MG Tab PO SCH (09:15)
[2019-11-25 10:11] VITALS: BP 127/75; PULSE 80
[2019-11-25] MEDS ORDERED: LURASIDONE HCL 80 MG PO SCH (11:00)
--- NOTE | 2019-11-25 17:29 | PCM.DCSUM1 ---
Discharge Summary - Hospital Course HPI Initial Comments: This is a 54-year-old female with extensive psychiatric past medical history who comes to the emergency department after 2 falls. As per patient he has been dizzy for several months, however this has been significantly worse in the past 3 days. She describes 2 kinds of dizziness 1 as standing up and feeling her legs weak and the second 1 as if the ground goes out from under her. The second 1 happened a couple of days ago and at the same time she started h aving a panic attack she took to 10 mg Valium's and fell in the bathroom into the bathtub and hurt her chest. She had ordered some food and wanted to go pick it up from the front floor, she managed to get up walk towards the front door but fell on the coffee table again Yesterday had a brisk same episode where she started feeling weak accompanied with blurry vision to the point that it hurt her head. She went to bed and waited a couple of hours went to use the restroom and after voiding urine stood up and fell in the tub again for which she decided to come to the emergency department for evaluation - Discharge Data Discharge Date: 11/25/19 Discharge Disposition: Against Medical Advice 07 Condition: Good - Referral to Home Health Primary Care Physician: Suha Fernandez MD - Discharge Diagnosis/Problem(s) (1) Syncope and collapse SNOMED Code(s): 644137531 ICD Code: R55 - SYNCOPE AND COLLAPSE Status: Acute (2) ADHD SNOMED Code(s): 475893919 ICD Code: F90.9 - ATTENTION-DEFICIT HYPERACTIVITY DISORDER, UNSPECIFIED TYPE Status: Acute (3) Anxiety SNOMED Code(s): 01589833 ICD Code: F41.9 - ANXIETY DISORDER, UNSPECIFIED Status: Acute (4) Bipolar disorder SNOMED Code(s): 24751600 ICD Code: F31.9 - BIPOLAR DISORDER, UNSPECIFIED Status: Acute (5) Major depressive disorder SNOMED Code(s): 013295289 ICD Code: F32.9 - MAJOR DEPRESSIVE DISORDER, SINGLE EPISODE, UNSPECIFIED Status: Acute (6) Hypothyroidism SNOMED Code(s): 40151464 ICD Code: E03.9 - HYPOTHYROIDISM, UNSPECIFIED Status: Acute (7) Abnormal weight loss SNOMED Code(s): 435917394 ICD Code: R63.4 - ABNORMAL WEIGHT LOSS Status: Acute (8) Polypharmacy SNOMED Code(s): 199513419 ICD Code: Z79.899 - OTHER PANTS CLOSER (CURRENT) DRUG THERAPY Status: Acute (9) Ribs, multiple fractures SNOMED Code(s): 1350763 ICD Code: S22.49XA - MULTIPLE FRACTURES OF RIBS, UNSP SIDE, INIT FOR CLOS FX Status: Acute (10) Dizziness SNOMED Code(s): 817712839, 684812997 ICD Code: R42 - DIZZINESS AND GIDDINESS Status: Acute (11) Fall SNOMED Code(s): 9707091, 478850514 ICD Code: W19.XXXA - UNSPECIFIED FALL, INITIAL ENCOUNTER Status: Acute Qualifiers: Encounter type: initial encounter Qualified Code(s): W19.XXXA - Unspecified fall, initial encounter - Patient Summary/Data Hospital Course: ASSESSMENT ON 11/24/2019 Comes in after 3 falls preceded by dizziness/feeling unsteady Has had intermittent dizziness for a while now PCP did a Holter monitor 6 months ago reported normal History of a gastric bypass in 2007 Weight went down from 256 235 Has had significantly decreased appetite and postprandial vomiting, likely gastroparesis Multiple central acting medications Saw her PCP on and her psychiatrist on Tuesday who added Trileptal in the evenings On Adderall, Flexeril, duloxetine, gabapentin, Vyvanse, Latuda, oxcarbazepine, diazepam and trazodone Vital signs on admission Blood pressure 118/84, heart rate 80, temp 99, pulse ox 99% Orthostatic in the emergency department All labs within normal limits except for magnesium of 1.5 Urine drug screen positive for tricyclics, amphetamines and benzodiazepines Labs ordered for today with a folate level of 5.7 B12 normal PLAN Evaluate current med list and start to taper down Repeat TSH and T4 Hold levothyroxine Dietary consult Prealbumin level Rest of vitamin levels and iron panel Patient will remain admitted to medical floor pending repeat blood work, will taper down and discontinue as much medications as possible. An extensive discussion was had with patient regarding need to taper central acting medications She did voice that she does not want any adjustments on the duloxetine or the trazodone as it has taken her a long time to get those to where they work States that her Vyvanse was started because the Adderall was not working throughout the whole day, normally the Adderall to take it in the morning and have at least 4 hours asleep which is not happening anymore Did see her psychiatrist and PCP this and Tuesday respectively Diazepam as scheduled daily but patient states that she takes about 1 to 2 tablets every 4 to 5 days Discussed with her that Vyvanse and Adderall are basically the same medication so the ideal recommendation if the Adderall was not working would be to switch to Vyvanse Patient did voice that we probably have the wrong medication list and asked we get a medication and bring it to her so she could tell us which when she is really on Changes that were made were discussed with patient prior to making them and were as follows: Valium change from 10-5 Discontinue Adderall Continue duloxetine at 60 daily Vyvanse increased from 10-20 Latuda decreased from 160-80 Oxcarbazepine left at the same dose Trazodone left at the same dose Patient does state that she has been losing significant amount of weight in the past 6 months States that she has had postprandial vomiting almost every time she eats Discussed Reglan versus gastric emptying study as options After reconciling medication patient spoke to primary nurse and explained to her that she normally takes duloxetine in the evenings and not as it is stated in her home med list in the middle of the day Nurse requested I change the schedule, verbal order was given to change it as per patient's normal home medications Current medication list, confirmed with patient Myrbetriq 50 mg extended release at bedtime Amphetamine salts 15 mg at noon Vyvanse 10 mg every day Oxcarbazepine 600 mg twice a day Trazodone 100 mg at bedtime as needed Levothyroxine 125 mcg daily Duloxetine 60 mg at night Latuda 80 mg every afternoon Victoza 1.8 mg once a day Gabapentin 800 mg 3 times a day Metformin 850 mg once a day Oxybutynin 25 mg at bedtime Zofran 4 mg as needed, takes it about 3 times a week Valium 10 mg prescribed daily but patient states she takes it rarely Prempro 0.3 mg / 1.5 mg tablets started 3 weeks ago for her jaw Cyclobenzaprine 10 mg 3 times a day as needed, takes it 3 times a day Vitamin B-12, calcium, D, iron and vitamin D supplementation Albuterol and Flonase as needed 11/25/2019 On arrival to the hospital primary nurse informed me that patient was very unhappy as she did not get her medications last night I requested primary nurse confirm with overnight nurse of medications were given Duloxetine was given however when nurse went to administer the trazodone patient was fast asleep so she did not get that medication Patient presented the nurses with an ultimatum requesting information in the next 10 minutes where she would leave AMA I informed primary nurse that I would look over the chart and go and speak to her Shortly after that patient left AMA Physical exam and subjective data was not obtained as patient left prior to my evaluation - Discharge Plan *PRESCRIPTION DRUG MONITORING PROGRAM REVIEWED*: Not Applicable *COPY OF PRESCRIPTION DRUG MONITORING REPORT IN PATIENT AKUA: Not Applicable Home Medications: Home Meds Amphetamine Salts. 15 mg PO DAILY 11/23/19 [History] Cyclobenzaprine [Flexeril] 5 mg PO TID PRN 11/23/19 [History] DULoxetine [Cymbalta] 60 mg PO DAILY 11/23/19 [History] Estrogen,Con/M-Progest Acet [Prempro 0.3 MG-1.5 MG] 1 tab PO DAILY 11/23/19 [History] Gabapentin [Neurontin] 800 mg PO TID 11/23/19 [History] Levothyroxine 125 mcg PO DAILY 11/23/19 [History] Liraglutide [Victoza] 1.8 mg INJECT DAILY 11/23/19 [History] Lisdexamfetamine Dimesylate [Vyvanse] 10 mg PO DAILY 11/23/19 [History] Lurasidone HCl [Latuda] 160 mg PO WITHLUNCH 11/23/19 [History] Mirabegron [Myrbetriq] 50 mg PO DAILY 11/23/19 [History] OXcarbazepine [Oxcarbazepine] 600 mg PO BID 11/23/19 [History] Ondansetron [Zofran] 4 mg PO DAILY PRN 11/23/19 [History] Oxybutynin Chloride [Oxybutynin Chloride ER] 15 mg PO BEDTIME 11/23/19 [History] diazePAM [Valium] 10 mg PO DAILY 11/23/19 [History] metFORMIN [Glucophage] 850 mg PO DAILY 11/23/19 [History] traZODone HCl [Trazodone HCl] 100 mg OP BEDTIME 11/23/19 [History] - Discharge Summary/Plan Comment DC Time >30 min.: No
[2019-11-25] MEDS ORDERED: OXYBUTININ PO SCH (21:00)
== END 2019-11-25 09:47 | disposition left against medical advice (07) ==
LOC: JD.ED 18:05 → JD.MS 21:38
PROVIDERS: ADMIT Internal Medicine; ATTEND Internal Medicine
DX: R55 Syncope and collapse (principal); R42 Dizziness and giddiness; S22.49XA Multiple fractures of ribs, unspecified side, initial encounter for closed fracture; F41.9 Anxiety disorder, unspecified; F31.9 Bipolar disorder, unspecified; E03.9 Hypothyroidism, unspecified; H55.00 Unspecified nystagmus; R29.6 Repeated falls; F90.9 Attention-deficit hyperactivity disorder, unspecified type; R63.4 Abnormal weight loss; Z88.6 Allergy status to analgesic agent; Z98.84 Bariatric surgery status; Z68.20 Body mass index [BMI] 20.0-20.9, adult; Z79.899 Other long term (current) drug therapy; Z20.828 Contact with and (suspected) exposure to other viral communicable diseases; Z79.890 Hormone replacement therapy; W01.198A Fall on same level from slipping, tripping and stumbling with subsequent striking against other object, initial encounter
CPT/HCPCS: 36415; 70450; 71046; 71250; 80053; 80306; 80307; 81001; 82306; 82607; 82746; 83735; 84443; 85025; 87635; 93005; 96361; 96374; 96375; 96376; 99285; A9270; G0378; J1885; J2060; J2405; J7120; 93010; 99217; 99219; U0002

== ENCOUNTER 2020-12-12 16:57 | Emergency (ER) | payer BC, MEDICARE ==
[2020-12-12] MEDS ORDERED: LORazepam 2 MG/ML SDV IVPUSH ONE (17:05)
--- NOTE | 2020-12-12 18:00 | CR ---
Chest: Portable view of the chest was obtained. Comparison: Prior chest x-ray of 11/23/19. Chest CT of 11/23/19 is also available. Heart size and mediastinum are within normal limits. Lung markings are slightly increased which are felt to be accentuated from technique. Nodule is noted within the left lower lung believed to be incidental as no nodule is seen on chest CT. Slight scoliosis is noted within the spine with mild endplate osteophytes. Impression: 1. Findings as noted above. Nothing acute is appreciated on portable chest x-ray. Diagnostic code #2
--- NOTE | 2020-12-12 18:18 | EDM.PDOC ---
<Robert Turcios - Last Filed: 12/12/20 18:45> ED HPI GENERAL MEDICAL PROBLEM - General Chief Complaint: Respiratory Problem Stated Complaint: DIZZY Time Seen by Provider: 12/12/20 17:20 Source of Information: Reports: Patient, Family History Limitations: Reports: No Limitations - History of Present Illness INITIAL COMMENTS - FREE TEXT/NARRATIVE: Patient is a 55-year-old female presenting to the emergency room with a chief complaint of shortness of breath and chest pain. She states she started experiencing some chest pain this afternoon while she was at work. Patient was not exerting herself. Patient's came to pick her up from work and noticed she was demonstrating some mild shortness of breath. This continued to worsen and she seemed to become more anxious. Patient took 1 Valium about 15 minutes prior to arrival. She does have a history of anxiety but the does not think this is related to anxiety. Patient feels better when she lies on her back. During the past few days, the patient has had poor sleep. However, she has not experienced any coughing, fevers, dyspnea. No sick contact exposure. No prior history of DVT/PE. Patient did receive the Covid vaccine. - Related Data Allergies Allergy/AdvReac Type Severity Reaction Status Date / Time ibuprofen Allergy Severe Cannot Verified 12/12/20 17:05 Remember Home Meds: Home Meds Amphetamine Salts. 15 mg PO BID 11/23/19 [History] Cyclobenzaprine [Flexeril] 5 mg PO TID PRN 11/23/19 [History] DULoxetine [Cymbalta] 60 mg PO DAILY 11/23/19 [History] Estrogen,Con/M-Progest Acet [Prempro 0.3 MG-1.5 MG] 1 tab PO DAILY 11/23/19 [History] Gabapentin [Neurontin] 800 mg PO TID 11/23/19 [History] Levothyroxine 125 mcg PO DAILY 11/23/19 [History] Liraglutide [Victoza] 1.8 mg INJECT DAILY 11/23/19 [History] Lisdexamfetamine Dimesylate [Vyvanse] 10 mg PO DAILY 11/23/19 [History] Lurasidone [Latuda] 20 mg PO DAILY 11/23/19 [History] Mirabegron [Myrbetriq] 50 mg PO DAILY 11/23/19 [History] OXcarbazepine [Oxcarbazepine] 600 mg PO BID 11/23/19 [History] Oxybutynin Chloride [Oxybutynin Chloride ER] 15 mg PO BEDTIME 11/23/19 [History] diazePAM [Valium] 10 mg PO DAILY 11/23/19 [History] traZODone HCl [Trazodone HCl] 100 mg OP BEDTIME 11/23/19 [History] Past Medical History HEENT History: Reports: Impaired Vision, Other (See Below) Other HEENT History: wears dentures wears contacts Cardiovascular History: Reports: None Respiratory History: Reports: None Genitourinary History: Reports: Urinary Incontinence COLLECTIONS OFFICER History: Reports: Other COLLECTIONS OFFICER History: vaginal Musculoskeletal History: Reports: Osteoarthritis 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 History: Reports: Concussion Psychiatric History: Reports: ADHD, Addiction, Anxiety, Bipolar, Depression, Suicidal Ideation Endocrine/Metabolic History: Reports: Hypothyroidism Hematologic History: Reports: Anemia, B12 Deficiency Immunologic History: Reports: None Oncologic (Cancer) History: Reports: None Dermatologic History: Reports: Other (See Below) Other Dermatologic History: excess skin removal surgery - Infectious Disease History Infectious Disease History: Reports: None Other Infectious Disease History: pt states she doesn't know if she has had any of these - Past Surgical History HEENT Surgical History: Reports: Tonsillectomy GI Surgical History: Reports: Bariatric Procedure Other GI Surgeries/Procedures: 2009 gastric bypass Female Surgical History: Reports: Tubal Ligation Musculoskeletal Surgical History: Reports: Knee Replacement Other Musculoskeletal Surgeries/Procedures:: right knee in 2009 and redone in 2013 Dermatological Surgical History: Reports: Plastic Surgical Reconstruction/Repair Social & Family History - Family History Family Medical History: No Pertinent Family History - Tobacco Use Tobacco Use Status *Q: Never Tobacco User Second Hand Smoke Exposure: No - Caffeine Use Caffeine Use: Reports: Soda Other Caffeine Use: pills - Recreational Drug Use Recreational Drug Use: Yes Recreational Drug Type: Reports: Marijuana/Hashish - Living Situation & Occupation Living situation: Reports: , with Spouse, with Family (Son) Occupation: Unemployed ED ROS GENERAL - Review of Systems Review Of Systems: See Below Free Text/Narrative/Comment: In addition to that documented in the HPI above, the additional ROS was obtained: Constitutional: Denies fevers or chills Eyes: Denies vision changes ENMT: Denies sore throat CV: Lower right-sided chest pain Resp: Per HPI GI: Denies vomiting or diarrhea : Denies painful urination MSK: Denies recent trauma Skin: Denies new rashes Neuro: Denies new numbness or tingling or weakness Endocrine: Denies unexpected weight loss Heme: Denies bleeding disorders ED EXAM, GENERAL - Physical Exam Exam: See Below Free Text/Narrative:: I have reviewed the triage vital signs Const: Patient appears to be in moderate distress and extremely anxious. Patient is rocking around in the bed taking shallow breaths. Eyes: Pupils Equal and reactive to light bilaterally, no conjunctival injection HENT: No signs of trauma or swelling, Neck supple without meningismus CV: Regular Rate Rhythm, Warm, well-perfused extremities RESP: Rapid breathing but lungs are clear to auscultation bilaterally GI: soft, non-tender, non-distended, no masses MSK: No gross deformities appreciated Skin: Warm, dry. No rashes Neuro: Alert, developmental mathematics professor II-XII grossly intact. Sensation and motor function of extremities grossly intact. Psych: Anxious but demonstrating linear thought process. Departure - Departure Disposition: Home, Self-Care 01 Clinical Impression: Hyperventilation syndrome - Discharge Information Instructions: Hyperventilation Referrals: Suha Fernandez MD [Physician] - Forms: ED Department Discharge Additional Instructions: You were seen in the emergency room after developing shortness of breath and chest pain. Work-up in the ER included numerous blood tests, a swab for the SARS-CoV-2 virus, a chest x-ray, a CT angiogram of your chest, and an ECG. Your entire work-up was unremarkable. You have not suffered a heart attack. You do not have a blood clot in your lungs. You are not suffering from congestive heart failure. You do not have pneumonia. You do not have a collapsed lung. Based on your history, physical exam, and ER tests, your symptoms were most likely due to hyperventilation syndrome, due to anxiety. We recommend that you continue to take your current medications as prescribed. If your symptoms persist or recur, please follow-up with your PCP, Dr. Suha Foy. If any other problems, please do not hesitate to return to the ER. - Assessment/Plan Assessment:: Patient is a 55-year-old female presented to emergency room with a chief complaint of shortness of breath. Patient had unremarkable ER course. Patient received supplemental oxygen although she was not hypoxic as well as 0.5 mg of Ativan. This seemed to significantly improve her symptoms. Patient much more calm and breathing very comfortably. Differential diagnosis considered for this patient include COVID-19, pulmonary embolism, ACS, panic attack. Laboratory studies reviewed demonstrate no significant abnormalities other than elevated D- dimer at 0.62. Patient will undergo a CT angiogram be signed out to overnight attending pending CT result. At this point, patient is stable for discharge but will require the CT to ensure she does not need any sort of anticoagulation. <Abran Moore - Last Filed: 12/12/20 22:15> #1 Interpretation EKG Date: 12/12/20 Time: 17:11 Rhythm: NSR Rate (Beats/Min): 81 [place]: Normal P-Wave: Present QRS: Normal ST-T: Normal QT: Normal Comparison: No Change (11/23/2019) Course - Vital Signs Last Recorded V/S: Last Vital Signs Temp 36.8 C 12/12/20 17:01 Pulse 74 12/12/20 21:15 Resp 17 12/12/20 21:15 BP 130/90 12/12/20 21:15 Pulse Ox 100 12/12/20 21:15 - Orders/Labs/Meds Orders: Active Orders 24 hr Category Date Time Status Sodium Chloride 0.9% [Normal Saline] 100 ml Med 12/12/20 19:30 Active IV ASDIRECTED Medication Orders Sodium Chloride (Normal Saline) 100 mls @ 60 mls/min IV ASDIRECTED PRAVIN Last Admin: 12/12/20 19:31 Dose: 60 mls/min Documented by: PRATEEK Labs: Laboratory Tests 12/12/20 12/12/20 12/12/20 Range/Units 17:00 17:00 17:00 WBC 6.88 (3.98-10.04) K/mm3 RBC 3.99 (3.98-5.22) M/mm3 Hgb 12.0 (11.2-15.7) gm/dl Hct 36.7 (34.1-44.9) % MCV 92.0 (79.4-94.8) fl MCH 30.1 (25.6-32.2) pg MCHC 32.7 (32.2-35.5) g/dl RDW Std Deviation 47.2 H (36.4-46.3) fL Plt Count 280 (182-369) K/mm3 MPV 10.2 (9.4-12.3) fl Neut % (Auto) 69.8 (34.0-71.1) % Lymph % (Auto) 25.0 (19.3-51.7) % Spink % (Auto) 4.1 L (4.7-12.5) % Eos % (Auto) 0.9 (0.7-5.8) Baso % (Auto) 0.1 (0.1-1.2) % Neut # (Auto) 4.80 (1.56-6.13) K/mm3 Lymph # (Auto) 1.72 (1.18-3.74) K/mm3 Spink # (Auto) 0.28 (0.24-0.36) K/mm3 Eos # (Auto) 0.06 (0.04-0.36) K/mm3 Baso # (Auto) 0.01 (0.01-0.08) K/mm3 PT (9.7-12.0) SECONDS INR D-Dimer, Quantitative (0.19-0.50) mg/L Sodium 137 (136-145) mEq/L Potassium 3.6 (3.5-5.1) mEq/L Chloride 101 (98-107) mEq/L Carbon Dioxide 26 (21-32) mEq/L Anion Gap 13.6 (5-15) BUN 17 (7-18) mg/dL Creatinine 1.0 (0.55-1.02) mg/dL Est Cr Clr Drug Dosing 58.95 mL/min Estimated GFR (MDRD) 58 (>60) mL/min BUN/Creatinine Ratio 17.0 (14-18) Glucose 99 (70-99) mg/dL Calcium 9.5 (8.5-10.1) mg/dL Total Bilirubin 0.4 (0.2-1.0) mg/dL AST 24 (15-37) U/L ALT 27 (14-59) U/L Alkaline Phosphatase 71 (46-116) U/L Troponin I < 0.017 (0.00-0.056) ng/mL NT-Pro-B Natriuret Pep 104 (0-125) pg/mL Total Protein 7.2 (6.4-8.2) g/dl Albumin 3.8 (3.4-5.0) g/dl Globulin 3.4 gm/dL Albumin/Globulin Ratio 1.1 (1-2) SARS-CoV-2 RNA (ALISON) (NEGATIVE) 12/12/20 12/12/20 12/12/20 Range/Units 17:00 17:00 17:40 WBC (3.98-10.04) K/mm3 RBC (3.98-5.22) M/mm3 Hgb (11.2-15.7) gm/dl Hct (34.1-44.9) % MCV (79.4-94.8) fl MCH (25.6-32.2) pg MCHC (32.2-35.5) g/dl RDW Std Deviation (36.4-46.3) fL Plt Count (182-369) K/mm3 MPV (9.4-12.3) fl Neut % (Auto) (34.0-71.1) % Lymph % (Auto) (19.3-51.7) % Spink % (Auto) (4.7-12.5) % Eos % (Auto) (0.7-5.8) Baso % (Auto) (0.1-1.2) % Neut # (Auto) (1.56-6.13) K/mm3 Lymph # (Auto) (1.18-3.74) K/mm3 Spink # (Auto) (0.24-0.36) K/mm3 Eos # (Auto) (0.04-0.36) K/mm3 Baso # (Auto) (0.01-0.08) K/mm3 PT 9.9 (9.7-12.0) SECONDS INR < 0.93 D-Dimer, Quantitative 0.62 H (0.19-0.50) mg/L Sodium (136-145) mEq/L Potassium (3.5-5.1) mEq/L Chloride (98-107) mEq/L Carbon Dioxide (21-32) mEq/L Anion Gap (5-15) BUN (7-18) mg/dL Creatinine (0.55-1.02) mg/dL Est Cr Clr Drug Dosing mL/min Estimated GFR (MDRD) (>60) mL/min BUN/Creatinine Ratio (14-18) Glucose (70-99) mg/dL Calcium (8.5-10.1) mg/dL Total Bilirubin (0.2-1.0) mg/dL AST (15-37) U/L ALT (14-59) U/L Alkaline Phosphatase (46-116) U/L Troponin I (0.00-0.056) ng/mL NT-Pro-B Natriuret Pep (0-125) pg/mL Total Protein (6.4-8.2) g/dl Albumin (3.4-5.0) g/dl Globulin gm/dL Albumin/Globulin Ratio (1-2) SARS-CoV-2 RNA (ALISON) Negative (NEGATIVE) Meds: Medications Generic Name Dose Route Start Last Admin Trade Name Freq PRN Reason Stop Dose Admin Sodium Chloride 100 mls @ 60 mls/min 12/12/20 19:30 12/12/20 19:31 Normal Saline IV 60 mls/min ASDIRECTED PRAVIN Administration Discontinued Medications Generic Name Dose Route Start Last Admin Trade Name Freq PRN Reason Stop Dose Admin Iopamidol 50 ml 12/12/20 19:28 12/12/20 19:31 Iopamidol 755 Mg/Ml 50 Ml Bottle IVPUSH 12/12/20 19:29 50 ml ONETIME ONE Administration Lorazepam 0.5 mg 12/12/20 17:05 12/12/20 17:21 Lorazepam 2 Mg/Ml Sdv IVPUSH 12/12/20 17:06 0.5 mg ONETIME ONE Administration Sodium Chloride 10 ml 12/12/20 19:28 12/12/20 19:31 Sodium Chloride 0.9% 10 Ml Sdv FLUSH 12/12/20 19:29 10 ml ONETIME ONE Administration - Re-Assessments/Exams Free Text/Narrative Re-Assessment/Exam: 12/12/20 20:[address] Turcios, for change of shift. I agree with his history and physical examination as documented. Portable chest radiograph appears to be grossly normal. The cardiac silhouette is within normal limits. No pulmonary vascular congestion. No pleural effusions seen on this AP view. No focal infiltrate. No pneumothorax. Formal read per the Radiologist pending. CT angiogram of the chest is read by Dr. Swain as: 1. No findings of pulmonary embolism. 2. Patchy areas of increased density within the right upper lung suspicious for early areas of right upper lobe pneumonia. 3. Other findings believed to be incidental as noted above. 12/12/20 20:58 Test results discussed with the patient and her . As above, today's work-up is grossly unremarkable, with the exception of the CT finding of some patchy areas of increased density within the right upper lung suspicious for early areas of right upper lobe pneumonia, however, the patient does not have a fever, there is no report of cough, she is afebrile, with an oxygen saturation of 100% - she does not have pneumonia. An oxygen saturation of 100% on room air suggests hyperventilation, and her symptoms essentially resolved after she was given lorazepam, strongly implying that her presentation was due to anxiety. Both the patient and her resisted that diagnosis, however, I am not sure how else we can interpret her work-up. Departure - Departure Time of Disposition: 21:00 Condition: Good - Discharge Information *PRESCRIPTION DRUG MONITORING PROGRAM REVIEWED*: Not Applicable *COPY OF PRESCRIPTION DRUG MONITORING REPORT IN PATIENT AKUA: Not Applicable Sepsis Event Note (ED) - Focused Exam Vital Signs: Vital Signs Temp Pulse Resp BP Pulse Ox 12/12/20 21:15 74 17 130/90 100 12/12/20 17:01 36.8 C 70 28 H 121/92 H 100
[2020-12-12] MEDS ORDERED: Iopamidol 755 MG/ML 50 ML Bottle IVPUSH ONE (19:28)
[2020-12-12] MEDS ORDERED: Sodium Chloride 0.9% 10 ML SDV FLUSH ONE (19:28)
[2020-12-12] MEDS ORDERED: Sodium Chloride 0.9% 100 ML IV SCH (19:30)
--- NOTE | 2020-12-12 19:43 | CT ---
CT chest Technique: Multiple axial sections through the chest were obtained. Intravenous contrast was utilized. Study has been performed as a pulmonary angiogram protocol. Comparison: Prior chest CT study of 11/23/19. Findings: Pulmonary arteries are well opacified. No filling defects are seen to indicate pulmonary embolism. Thoracic aorta shows no aneurysm. Mediastinum shows no adenopathy. No axillary adenopathy is seen. No pericardial thickening is seen. Small portion of the visualized upper abdominal structures show no discrete abnormality. Lung window settings were reviewed which show slight patchy areas of increased density within the right upper lung. Lungs otherwise are clear. Bone window settings were reviewed which show mild scattered degenerative change within the thoracic spine. Two healed rib fractures are noted on the right side. No acute osseous abnormality is appreciated. Impression: 1. No findings of pulmonary embolism. 2. Patchy areas of increased density within the right upper lung suspicious for early areas of right upper lobe pneumonia. 3. Other findings believed to be incidental as noted above. Diagnostic code #3
[2020-12-12 21:21] VITALS: BP 130/90; PULSE 74
== END 2020-12-12 21:15 | disposition home or self-care (01) ==
LOC: JD.ED 16:57
DX: R07.9 Chest pain, unspecified (principal); F45.8 Other somatoform disorders; E03.9 Hypothyroidism, unspecified; Z88.8 Allergy status to other drugs, medicaments and biological substances; Z79.899 Other long term (current) drug therapy
CPT/HCPCS: 36415; 71045; 71045-26; 71275; 71275-26; 80053; 83880; 84484; 85025; 85379; 85610; 93005; 96374; 99285-25; J2060; Q9967; U0002

== ENCOUNTER 2021-07-23 17:07 | Emergency (ER) | payer BC, MEDICARE ==
[2021-07-23 17:23] VITALS: BP 115/78; PULSE 57
[2021-07-23] MEDS ORDERED: Lidocaine 2% Jelly 10 ML Urojet MUCMEM ONE (18:47)
[2021-07-23] MEDS ORDERED: LORazepam 0.5 MG Tab PO ONE (19:23)
[2021-07-23] MEDS ORDERED: Magnesium Citrate Solution 296 ML Bottle PO ONE (22:30)
== END 2021-07-23 22:45 | disposition home or self-care (01) ==
LOC: JD.ED 17:07
DX: K59.01 Slow transit constipation (principal); M19.90 Unspecified osteoarthritis, unspecified site; Z88.8 Allergy status to other drugs, medicaments and biological substances; Z79.899 Other long term (current) drug therapy
CPT/HCPCS: 74019; 99283; A9270

== ENCOUNTER 2021-07-27 15:57 | Emergency (ER) | payer BC, MEDICARE ==
[2021-07-27 16:17] VITALS: BP 122/72; PULSE 70
[2021-07-27] MEDS ORDERED: Lactated Ringers 1,000 ML IV ONE (16:48)
[2021-07-27] MEDS ORDERED: Prochlorperazine 10 MG/2 ML SDV IVPUSH ONE (16:48)
[2021-07-27] MEDS ORDERED: Lactated Ringers 1,000 ML IV SCH (17:00)
[2021-07-27] MEDS ORDERED: Sodium Chloride 0.9% 10 ML Syringe FLUSH PRN (17:04)
[2021-07-27] MEDS ORDERED: Iopamidol 612 MG/ML 100 ML Bottle IVPUSH ONE (17:04)
[2021-07-27] MEDS ORDERED: Diatrizoate Meglumine/Diatrizoate Sodium 37% 120 ML Bottle PO ONE (17:04)
== END 2021-07-27 22:30 | disposition home or self-care (01) ==
LOC: JD.ED 15:57
DX: K59.00 Constipation, unspecified (principal); E03.9 Hypothyroidism, unspecified; Z79.899 Other long term (current) drug therapy; Z88.8 Allergy status to other drugs, medicaments and biological substances
CPT/HCPCS: 36415; 74177; 80053; 81001; 83690; 85025; 87086; 96361; 96374; 99284; J0780; J3490; J7120; Q9967

== ENCOUNTER 2021-09-16 14:22 | Emergency (ER) | payer BC, MEDICARE | END 2021-09-16 17:44 | LOC: JD.ED 14:22 | DX: Z53.21 Procedure and treatment not carried out due to patient leaving prior to being seen by health care provider (principal) ==

== ENCOUNTER 2021-10-21 23:30 | Emergency (ER) | payer BC, MEDICARE ==
[2021-10-21] MEDS ORDERED: Sodium Chloride 0.9% 1,000 ML IV SCH (23:45)
[2021-10-21] MEDS ORDERED: Morphine 4 MG/ML Syringe IVPUSH ONE (23:58)
[2021-10-21] MEDS ORDERED: Ondansetron 4 MG/2 ML SDV IVPUSH ONE (23:58)
[2021-10-22] MEDS ORDERED: Sodium Chloride 0.9% 10 ML Syringe FLUSH ONE (00:51)
[2021-10-22] MEDS ORDERED: Iopamidol 612 MG/ML 100 ML Bottle IVPUSH ONE (00:51)
[2021-10-22] MEDS ORDERED: Piperacillin/Tazobactam 4.5 GM in Sodium Chloride 0.9% 100 ML IV ONE (01:37)
[2021-10-22] MEDS ORDERED: Sodium Chloride 0.9% 1,000 ML IV SCH (02:15)
[2021-10-22] MEDS ORDERED: Morphine 2 MG/ML SYRINGE IVPUSH ONE (02:50)
[2021-10-22] MEDS ORDERED: Morphine 2 MG/ML SYRINGE ONE (02:53)
[2021-10-22] MEDS ORDERED: Norepinephrine 4 MG in Dextrose 5% in Water 246 ML IV SCH ×2 (03:00)
[2021-10-22] MEDS ORDERED: Norepinephrine 4 MG/4 ML SDV ONE (03:05)
[2021-10-22] MEDS ORDERED: Sodium Chloride 0.9% 250 ML ONE (03:08)
[2021-10-22 05:51] VITALS: BP 97/78; PULSE 92
== END 2021-10-22 03:50 ==
LOC: JD.ED 23:30
DX: K63.1 Perforation of intestine (nontraumatic) (principal); E03.9 Hypothyroidism, unspecified; Z88.8 Allergy status to other drugs, medicaments and biological substances; Z79.899 Other long term (current) drug therapy
CPT/HCPCS: 36415; 74177; 74177-26; 80053; 83605; 83690; 83735; 85025; 85610; 87040; 96361; 96365; 96367; 96375; 96376; 99291; 99291-25; J2270; J2405; J2543; J3490; J7030; J7060; Q9967

== ENCOUNTER 2022-09-20 18:31 | Emergency (ER) | payer BC, MEDICARE ==
[2022-09-20] MEDS ORDERED: Amoxicillin/Clavulanate K 875-125 MG Tab PO ONE (19:38)
[2022-09-20 19:58] VITALS: BP 132/88; PULSE 81
== END 2022-09-20 19:54 | disposition home or self-care (01) ==
LOC: JD.ED 18:31
DX: S61.451A Open bite of right hand, initial encounter (principal); E03.9 Hypothyroidism, unspecified; Z88.6 Allergy status to analgesic agent; Z79.899 Other long term (current) drug therapy; W54.0XXA Bitten by dog, initial encounter
CPT/HCPCS: 73130; 99283; A9270; 99282

== ENCOUNTER 2023-11-06 20:17 | Emergency (ER) | payer BC, MEDICARE ==
[2023-11-06 21:52] LABS: BASOPHILS PERCENT AUTO 0.2 % (0.0-1.0); EOSINOPHILS PERCENT AUTO 0.3 % (0.0-6.0); HEMATOCRIT 46.7 % (37.0-47.0); HEMOGLOBIN 15.4 gm/dl (12.0-16.0); IMMATURE GRAN ABSOLUTE AUTO 0.01 K/mm3 (0.00-0.05); IMMATURE GRAN PERCENT AUTO 0.1 % (0.0-0.4); LYMPHOCYTES ABSOLUTE AUTO 1.1 K/mm3 (1.0-4.8); LYMPHOCYTES PERCENT AUTO 11.4 % (24.0-44.0); MEAN CORPUSCULAR HEMOGLOBIN 31.1 pg (28.0-32.0); MEAN CORPUSCULAR VOLUME 94.3 fl (83.0-99.0); MEAN PLATELET VOLUME 9.9 fl (9.4-12.3); MONOCYTES ABSOLUTE AUTO 0.3 K/mm3 (0.0-0.8); MONOCYTES PERCENT AUTO 3.1 % (0.0-8.0); NEUTROPHILS ABSOLUTE AUTO 8.2 K/mm3 (1.8-7.7); NEUTROPHILS PERCENT AUTO 84.9 % (41.0-71.0); PLATELET COUNT,PLT 328 K/mm3 (150-400); RED BLOOD CELL COUNT 4.95 M/mm3 (4.10-5.30)
[2023-11-06 22:17] LABS: A/G RATIO 1.2 (1-2); ALBUMIN 4.1 g/dl (3.4-5.0); ANION GAP 12.1 (5-15); BILIRUBIN TOTAL 0.4 mg/dL (0.2-1.0); C-REACTIVE PROTEIN 0.73 mg/dL (<0.30); CALCIUM 10.1 mg/dL (8.5-10.1); EST CRCL DRUG DOSING (CG) 64.87 mL/min; MAGNESIUM 1.5 mg/dL (1.8-2.4); POTASSIUM,K 3.1 mEq/L (3.5-5.1); PROTEIN TOTAL,TP 7.6 g/dl (6.4-8.2)
[2023-11-06] MEDS ORDERED: Naloxone 0.4 MG/ML SDV IVPUSH PRN (23:17)
[2023-11-06] MEDS ORDERED: Sodium Chloride 0.9% 10 ML Syringe FLUSH PRN (23:17)
[2023-11-06] MEDS: HYDROmorphone 1 MG/ML Syringe IVPUSH ONE ×2 (23:40→23:59)
[2023-11-06] MEDS: HYDROmorphone 1 MG/ML Syringe ONE (23:58)
[2023-11-07] MEDS: Sodium Chloride 0.9% 10 ML Syringe FLUSH ONE (00:24)
[2023-11-07] MEDS: Iopamidol 612 MG/ML 100 ML Bottle IVPUSH ONE (00:24)
[2023-11-07] MEDS: Haloperidol Lactate 5 MG/ML SDV IVPUSH ONE (01:55)
[2023-11-07] MEDS ORDERED: HYDROmorphone 1 MG/ML Syringe IVPUSH ONE (02:09)
[2023-11-07 04:28] VITALS: BP 125/67; PULSE 90
== END 2023-11-07 04:28 ==
LOC: JD.ED 20:17
DX: K91.89 Other postprocedural complications and disorders of digestive system (principal); K66.8 Other specified disorders of peritoneum; F41.9 Anxiety disorder, unspecified; E03.9 Hypothyroidism, unspecified; Z79.899 Other long term (current) drug therapy; Z88.6 Allergy status to analgesic agent
CPT/HCPCS: 36415; 74177; 80053; 83690; 83735; 84484; 85025; 86140; 96374; 96375; 99284; J1170; J1630; J3490; Q9967